=== PATIENT | female | born 1940 | race Caucasian/White ===

== ENCOUNTER → 2017-12-14 | Outpatient (CLI) | payer MEDICARE, BC ==
[~2017-12-14] MED LIST: ALBU90OI6 INH; AZIT250 PO; CEFU500 PO; CEFU50SU PO; CREON DR 24,001 EACH PO; DULO60 PO; LEVFLO500 PO; LISI20 PO; MIRT15 PO; Macrobid 100 M100 MG PO; Omeprazole20 M1 PO; PAIN MED PO; PRED10 PO; Prednisone20 MG PO; TIOT18 INH; [UNRECOGNIZED DRUG - REMARK]
[2017-12-14 12:13] LABS: BASOPHILS ABSOLUTE AUTO 0.02 K/mm3 (0.00-0.23); BASOPHILS PERCENT AUTO 0 % (0-2); EOSINOPHILS ABSOLUTE AUTO 0.02 K/mm3 (0.00-0.68); EOSINOPHILS PERCENT AUTO 0 % (0-6); Hematocrit 40.8 % (33.0-51.0); Hemoglobin 13.3 g/dL (11.5-16.0); IMMATURE GRAN ABSOLUTE AUTO 0.19 K/mm3 (0.00-0.10); IMMATURE GRAN PERCENT AUTO 1 % (0-1); LYMPHOCYTES ABSOLUTE AUTO 0.91 K/mm3 (0.84-5.20); LYMPHOCYTES PERCENT AUTO 4 % (21-46); MONOCYTES PERCENT AUTO 7 % (4-13); Mean Corpuscular HGB 30.2 pg (26.0-34.0); Mean Corpuscular HGB Conc 32.6 g/dL (31.5-36.5); Mean Corpuscular Volume 93 fL (80-100); Mean Platelet Volume 12.3 fL (9.1-12.4); NEUTROPHILS ABSOLUTE AUTO 20.56 K/mm3 (1.96-9.15); NEUTROPHILS PERCENT AUTO 88 % (41-73); Platelet Count 252 K/mm3 (150-400); RDW Coefficient Variation 13.9 % (11.7-14.2); RDW Standard Deviation 47.5 fL (35.1-46.3)
[2017-12-14 12:24] LABS: Albumin, Blood 3.6 g/dL (3.4-5.0); Bilirubin, Total 1.1 mg/dL (0.1-1.0); Bun/Creatinine Ratio 18.4 (12.0-20.0); Creatinine, Blood 1.25 mg/dL (0.40-1.00); Globulin, Blood 3.7 g/dL (2.2-4.0); Potassium, Blood 3.9 mmol/L (3.5-5.5); Total Protein, Blood 7.3 g/dL (6.4-8.2)
[2017-12-14 13:51] LABS: BAND PERCENT MAN 1 % (0-8); BASOPHILS PERCENT MAN 0 % (0-2); EOSINOPHILS PERCENT MAN 0 % (0-6); LYMPHOCYTES ABSOLUTE MAN 0.46 K/mm3 (0.84-5.20); LYMPHOCYTES PERCENT MAN 2 % (21-46); MONOCYTES ABSOLUTE MAN 1.39 K/mm3 (0.16-1.47); MONOCYTES PERCENT MAN 6 % (4-13); NEUTROPHILS ABSOLUTE MAN 21.43 K/mm3 (1.96-9.15); SEG NEUTROPHILS PERCENT MAN 91 % (41-73); TOTAL CELLS COUNTED 100
== END | disposition home or self-care (01) ==
LOC: LAB SHORT 12:00 → LAB EV 12:00
PROVIDERS: Physician Assistant Surgical
DX: R50.9 Fever, unspecified (principal); R52 Pain, unspecified
CPT/HCPCS: 80053; 85025

== ENCOUNTER → 2017-12-15 | Outpatient (CLI) | payer MEDICARE, BC ==
[2017-12-15 13:24] LABS: BASOPHILS ABSOLUTE AUTO 0.04 K/mm3 (0.00-0.23); BASOPHILS PERCENT AUTO 0 % (0-2); EOSINOPHILS ABSOLUTE AUTO 0.12 K/mm3 (0.00-0.68); EOSINOPHILS PERCENT AUTO 1 % (0-6); Hematocrit 38.5 % (33.0-51.0); Hemoglobin 12.2 g/dL (11.5-16.0); IMMATURE GRAN ABSOLUTE AUTO 0.12 K/mm3 (0.00-0.10); IMMATURE GRAN PERCENT AUTO 1 % (0-1); LYMPHOCYTES ABSOLUTE AUTO 0.58 K/mm3 (0.84-5.20); LYMPHOCYTES PERCENT AUTO 3 % (21-46); MONOCYTES PERCENT AUTO 6 % (4-13); Mean Corpuscular HGB 29.9 pg (26.0-34.0); Mean Corpuscular HGB Conc 31.7 g/dL (31.5-36.5); Mean Corpuscular Volume 94 fL (80-100); Mean Platelet Volume 12.3 fL (9.1-12.4); NEUTROPHILS ABSOLUTE AUTO 17.09 K/mm3 (1.96-9.15); NEUTROPHILS PERCENT AUTO 89 % (41-73); Platelet Count 290 K/mm3 (150-400); RDW Coefficient Variation 14.1 % (11.7-14.2); RDW Standard Deviation 48.6 fL (35.1-46.3); Red Blood Cell Count 4.08 M/mm3 (3.80-5.20); White Blood Cell Count 19.15 K/mm3 (4.00-11.30)
[2017-12-15 13:40] LABS: Albumin, Blood 3.5 g/dL (3.4-5.0); Albumin/Globulin Ratio 0.9 (0.8-1.8); Bilirubin, Total 0.7 mg/dL (0.1-1.0); Bun/Creatinine Ratio 17.8 (12.0-20.0); Calcium, Blood 9.1 mg/dL (8.5-10.1); Creatinine, Blood 1.07 mg/dL (0.40-1.00); Globulin, Blood 3.7 g/dL (2.2-4.0); Total Protein, Blood 7.2 g/dL (6.4-8.2)
== END | disposition home or self-care (01) ==
LOC: LAB SHORT 13:14 → LAB EV 13:14
PROVIDERS: Physician Assistant Medical
DX: R50.9 Fever, unspecified (principal)
CPT/HCPCS: 80053; 85025; 85379

== ENCOUNTER → 2018-06-13 | Outpatient (CLI) | payer MEDICARE, BC ==
[2018-06-13 11:06] LABS: BASOPHILS ABSOLUTE AUTO 0.03 K/mm3 (0.00-0.23); BASOPHILS PERCENT AUTO 0 % (0-2); EOSINOPHILS ABSOLUTE AUTO 0.25 K/mm3 (0.00-0.68); EOSINOPHILS PERCENT AUTO 3 % (0-6); Hematocrit 39.5 % (33.0-51.0); Hemoglobin 12.5 g/dL (11.5-16.0); IMMATURE GRAN ABSOLUTE AUTO 0.03 K/mm3 (0.00-0.10); IMMATURE GRAN PERCENT AUTO 0 % (0-1); LYMPHOCYTES ABSOLUTE AUTO 1.52 K/mm3 (0.84-5.20); LYMPHOCYTES PERCENT AUTO 17 % (21-46); MONOCYTES ABSOLUTE AUTO 0.63 K/mm3 (0.16-1.47); MONOCYTES PERCENT AUTO 7 % (4-13); Mean Corpuscular HGB 29.6 pg (26.0-34.0); Mean Corpuscular HGB Conc 31.6 g/dL (31.5-36.5); Mean Corpuscular Volume 93 fL (80-100); Mean Platelet Volume 11.9 fL (9.1-12.4); NEUTROPHILS ABSOLUTE AUTO 6.54 K/mm3 (1.96-9.15); NEUTROPHILS PERCENT AUTO 73 % (41-73); Platelet Count 249 K/mm3 (150-400); RDW Coefficient Variation 14.3 % (11.7-14.2); RDW Standard Deviation 48.5 fL (35.1-46.3); Red Blood Cell Count 4.23 M/mm3 (3.80-5.20)
[2018-06-13 11:25] LABS: Albumin, Blood 3.6 g/dL (3.4-5.0); Albumin/Globulin Ratio 0.9 (0.8-1.8); Bilirubin, Total 0.4 mg/dL (0.1-1.0); Bun/Creatinine Ratio 11.1 (12.0-20.0); Calcium, Blood 8.3 mg/dL (8.5-10.1); Creatinine, Blood 1.17 mg/dL (0.40-1.00); Potassium, Blood 3.7 mmol/L (3.5-5.5); Total Protein, Blood 7.6 g/dL (6.4-8.2)
[2018-06-16 17:07] LABS: TANDEM-R OSTASE 70.8 ug/L (.)
== END | disposition home or self-care (01) ==
LOC: LAB SHORT 10:53 → LAB EV 10:53
PROVIDERS: Physician Assistant
DX: I10 Essential (primary) hypertension (principal); R74.8 Abnormal levels of other serum enzymes
CPT/HCPCS: 80053; 84080; 85025

== ENCOUNTER → 2018-12-09 | Outpatient (CLI) | payer MEDICARE, BC ==
[~2018-12-09] MED LIST changes: +AMLO10 PO; +HYDR1TAB94 PO; +Prinivil5 MG PO
== END | disposition home or self-care (01) ==
LOC: LAB EV 09:56 → LAB SHORT 09:56
DX: R30.0 Dysuria (principal)
CPT/HCPCS: 87086

== ENCOUNTER → 2018-12-14 | Outpatient (CLI) | payer MEDICARE, BC ==
[2018-12-14 15:34] LABS: Hematocrit 40.1 % (33.0-51.0); Hemoglobin 12.5 g/dL (11.5-16.0); Mean Corpuscular HGB 29.8 pg (26.0-34.0); Mean Corpuscular HGB Conc 31.2 g/dL (31.5-36.5); Mean Corpuscular Volume 96 fL (80-100); Platelet Count 341 K/mm3 (150-400); RDW Coefficient Variation 14.6 % (11.7-14.2); RDW Standard Deviation 51.4 fL (35.1-46.3); Red Blood Cell Count 4.19 M/mm3 (3.80-5.20)
[2018-12-14 15:46] LABS: Albumin, Blood 3.7 g/dL (3.4-5.0); Bilirubin, Total 0.3 mg/dL (0.1-1.0); Bun/Creatinine Ratio 10.5 (12.0-20.0); Calcium, Blood 8.4 mg/dL (8.5-10.1); Creatinine, Blood 2.09 mg/dL (0.40-1.00); Globulin, Blood 3.8 g/dL (2.2-4.0); Potassium, Blood 4.5 mmol/L (3.5-5.5); Total Protein, Blood 7.5 g/dL (6.4-8.2)
[2018-12-14 15:52] LABS: Mean Platelet Volume 13.2 fL (9.1-12.4); White Blood Cell Count 11.63 K/mm3 (4.00-11.30)
[2018-12-14 16:05] LABS: BAND PERCENT MAN 3 % (0-8); BASOPHILS ABSOLUTE MAN 0.11 K/mm3 (0.00-0.23); BASOPHILS PERCENT MAN 1 % (0-2); EOSINOPHILS PERCENT MAN 0 % (0-6); LYMPHOCYTES % ATYPICAL MANUAL 3 % (0-0); LYMPHOCYTES ABSOLUTE MAN 3.37 K/mm3 (0.84-5.20); LYMPHOCYTES PERCENT MAN 26 % (21-46); MONOCYTES ABSOLUTE MAN 0.93 K/mm3 (0.16-1.47); MONOCYTES PERCENT MAN 8 % (4-13); NEUTROPHILS ABSOLUTE MAN 7.21 K/mm3 (1.96-9.15); SEG NEUTROPHILS PERCENT MAN 59 % (41-73); TOTAL CELLS COUNTED 100
== END | disposition home or self-care (01) ==
LOC: LAB SHORT 15:28 → LAB EV 15:28
PROVIDERS: Physician Assistant Medical
DX: N39.0 Urinary tract infection, site not specified (principal); R10.10 Upper abdominal pain, unspecified
CPT/HCPCS: 80053; 83690; 85025; 87086

== ENCOUNTER 2019-02-01 16:34 | Inpatient (IN) | payer MEDICARE, BC ==
[~2019-02-01] VITALS: Ht 157.5 cm; Wt 50.4 kg
[~2019-02-01 16:34] MED LIST changes: -AMLO10 PO; -CREON DR 24,001 EACH PO; -HYDR1TAB94 PO; -Prinivil5 MG PO; -TIOT18 INH
[2019-02-01] MEDS ORDERED: AMLO10 PO (16:40)
[2019-02-01] MEDS ORDERED: Prinivil5 MG PO (16:40)
[2019-02-01] MEDS ORDERED: DULO60 PO (17:30)
[2019-02-01] MEDS ORDERED: CREON DR 24,001 EACH PO (18:00)
[2019-02-01] MEDS ORDERED: TIOT18 INH (18:00)
[2019-02-01 18:09] LABS: BASOPHILS ABSOLUTE AUTO 0.02 K/mm3 (0.00-0.23); BASOPHILS PERCENT AUTO 0 % (0-2); EOSINOPHILS ABSOLUTE AUTO 0.02 K/mm3 (0.00-0.68); EOSINOPHILS PERCENT AUTO 0 % (0-6); Hematocrit 37.7 % (33.0-51.0); Hemoglobin 11.3 g/dL (11.5-16.0); IMMATURE GRAN ABSOLUTE AUTO 0.06 K/mm3 (0.00-0.10); IMMATURE GRAN PERCENT AUTO 0 % (0-1); LYMPHOCYTES ABSOLUTE AUTO 1.07 K/mm3 (0.84-5.20); LYMPHOCYTES PERCENT AUTO 8 % (21-46); MONOCYTES ABSOLUTE AUTO 0.87 K/mm3 (0.16-1.47); MONOCYTES PERCENT AUTO 6 % (4-13); Mean Corpuscular HGB 29.7 pg (26.0-34.0); Mean Platelet Volume 12.7 fL (9.1-12.4); NEUTROPHILS ABSOLUTE AUTO 12.11 K/mm3 (1.96-9.15); NEUTROPHILS PERCENT AUTO 86 % (41-73); Platelet Count 210 K/mm3 (150-400); RDW Coefficient Variation 14.6 % (11.7-14.2); RDW Standard Deviation 52.8 fL (35.1-46.3); Red Blood Cell Count 3.81 M/mm3 (3.80-5.20); White Blood Cell Count 14.15 K/mm3 (4.00-11.30)
[2019-02-01 18:10] LABS: Mean Corpuscular Volume 99 fL (80-100)
[2019-02-01 18:26] LABS: Albumin, Blood 3.4 g/dL (3.4-5.0); Bilirubin, Total 0.3 mg/dL (0.1-1.0); Calcium, Blood 8.6 mg/dL (8.5-10.1); Creatinine, Blood 1.06 mg/dL (0.40-1.00); Globulin, Blood 3.3 g/dL (2.2-4.0); Potassium, Blood 4.6 mmol/L (3.5-5.5); Total Protein, Blood 6.7 g/dL (6.4-8.2)
[2019-02-02 06:18] LABS: BASOPHILS ABSOLUTE AUTO 0.02 K/mm3 (0.00-0.23); BASOPHILS PERCENT AUTO 0 % (0-2); EOSINOPHILS ABSOLUTE AUTO 0.09 K/mm3 (0.00-0.68); EOSINOPHILS PERCENT AUTO 1 % (0-6); Hematocrit 36.2 % (33.0-51.0); Hemoglobin 10.9 g/dL (11.5-16.0); IMMATURE GRAN ABSOLUTE AUTO 0.05 K/mm3 (0.00-0.10); IMMATURE GRAN PERCENT AUTO 1 % (0-1); LYMPHOCYTES ABSOLUTE AUTO 1.62 K/mm3 (0.84-5.20); LYMPHOCYTES PERCENT AUTO 15 % (21-46); MONOCYTES PERCENT AUTO 6 % (4-13); Mean Corpuscular HGB 29.3 pg (26.0-34.0); Mean Corpuscular HGB Conc 30.1 g/dL (31.5-36.5); Mean Corpuscular Volume 97 fL (80-100); NEUTROPHILS ABSOLUTE AUTO 8.38 K/mm3 (1.96-9.15); NEUTROPHILS PERCENT AUTO 77 % (41-73); Platelet Count 202 K/mm3 (150-400); RDW Coefficient Variation 14.5 % (11.7-14.2); RDW Standard Deviation 52.1 fL (35.1-46.3); Red Blood Cell Count 3.72 M/mm3 (3.80-5.20); White Blood Cell Count 10.86 K/mm3 (4.00-11.30)
[2019-02-02 06:22] LABS: Mean Platelet Volume 13.5 fL (9.1-12.4)
[2019-02-02 06:35] LABS: Albumin, Blood 3.1 g/dL (3.4-5.0); Bilirubin, Total 0.4 mg/dL (0.1-1.0); Bun/Creatinine Ratio 15.5 (12.0-20.0); Calcium, Blood 8.3 mg/dL (8.5-10.1); Creatinine, Blood 1.16 mg/dL (0.40-1.00); Globulin, Blood 3.2 g/dL (2.2-4.0); Magnesium, Blood 1.9 mg/dL (1.6-2.4); Potassium, Blood 4.5 mmol/L (3.5-5.5); Total Protein, Blood 6.3 g/dL (6.4-8.2)
--- NOTE | 2019-02-02 07:22 | NUR ---
SUMMARY PT ADMITTED LAST NIGHT FROM ER S/P LUNG BX WITH INCIDENTAL PUNCTURE WITH DEVELOPMENT OF PNEMO REQUIRING PIGTAIL CHEST TUBE TO R ANTERIOR CHES. PT DENIES SOB.SATS MOSTLY MID 90.S HOWEVER RT NOTED X 1 JUST UNDER 89 RT INCREASED O2 TO 3.5 L. WILL CONT TO MONITOR PT WITH HX COPD.UNKNOW IF RETAINER.I CALLED {PEDRO} ON ARRIVAL AND ADVISED OF BUBBLING SOUND CONTINUOUS PER PIGTAIL DRAIN WELL PT WITH CREPITUS ENTIRE R BREAST AREAS. PT DOES HAVE EQUAL RISE AND FALL BILAT.ALSO ADVISED PEDRO L LUNG GALLAGHER DECREASED WITH CRACKLES TO BASE AND R LUNG FIELD WITH CRACKLES THROUGH OUT. ? WHETHER TO GIVE LOVENOX ORDER.PEDRO ROUNDED TO ROOM TO ASSESS PT. NO CHANGE OF ORDERS.PT MEDICATED PO FOR PAIN THIS AM AND OUT TO RADIOLOGY FOR CXR. CONT TO DENY SOB. REPORTS BREATHING FEELING EASIER.
--- NOTE | 2019-02-02 15:29 | NUR ---
PT VISITING WITH FRIENDS AT BEDSIDE T/O AFTERNOON.
--- NOTE | 2019-02-02 18:35 | NUR ---
SHIFT SUMMARY PT A&OX4 WITH VSS T/O SHIFT TODAY. SPO2 ABOVE 90% ON 3L NS. DENIED SOB OR DYSPNEA. CHEST TUBE IN PLACE AND HOOKED UP TO SUCTION. NOT BLEEDING AT INSERTION SITE OR DRAINAGE IN CONTAINER. DR NOTIFIED AND IN TO SEE PT R/T CREPITIS ON RIGHT LATERAL CHEST AREA THIS AFTERNOON, NO NEW ORDERS OBTAINED. USING BSC WITH 1 ASSIST. VOIDING WELL AND TOLERATING REG DIET. CALL LIGHT WITHIN REACH AND PT IS ABLE TO USE APPROPRIATELY.
--- NOTE | 2019-02-03 06:18 | NUR ---
SUMMARY PT REMAINS A7O X4. VSS, O2 INCREAED TO 4.5 L VIA RT CARE. VSS. CREPITUS REMAINS, LUNGS ARE DIMINISHED IN ALL FEILDS. PT DENIES SOB. CHEST TUBE INTACT, DRSG CLEAN/DRY, HOOKED TO WALL SUCTION. SCANT AMOUNT OF SEROUS FLUID NOTED IN TUBING. 1 ASSIST TO BSC. OXYCODONE GIVEN FOR PAIN. WCTM, CALL LIGHT IN REACH
--- NOTE | 2019-02-03 17:04 | NUR ---
SHIFT SUMMARY PT HAS BEEN UP AND WALKED THE HALLWAY SEVERAL TIMES TODAY WITH FAMILY. PT TOLERATING PO FLUIDS AND SM AMTS OF FOOD. PAIN HAS BEEN MANAGED WITH PO PAIN MED PER ORDERS. PT DID HAVE SM AMT OF VOMITING TODAY AND WAS MED WITH ZOFRAN PER ORDER. PT HAD SHOWER TODAY. ANN IN PLACE, OFF FLOOR, DRAINING. FAMILY HAS BEEN AT BEDSIDE THROUGHOUT THE DAY. ASSISTED WITH ADL'S PRN.
--- NOTE | 2019-02-03 17:28 | NUR ---
SHIFT SUMMARY PT HAS BEEN UP TO COMMODE TODAY AND SITTING ON EDGE OF BED. REPOSITIONS SELF WITH MINIMAL HELP. DR GALAVIZ WAS IN TO SEE PT TODAY WELL FROM [place]. PAIN MANAGED WITH PO PAIN MED PER ORDERS. REPORTED NO SOB OR CP, ALTHOUGH PT HAS NEEDED 02 TODAY. NO NAUSEA TODAY. TOLERATING FOOD AND PO FLUIDS.
--- NOTE | 2019-02-04 06:03 | NUR ---
PATIENT WOKE SLIGHTLY DISORIENTED SEVERAL TIMES THIS SHIFT. SHE EASILY REORIENTED AFTER SEEING RN AND TALKING. NO INCREASE IN CREPITUS, NO SOB, NO DYSPNEA. lUNG GALLAGHER ARE CLEAR. [place] IS SECURE TO RT CHEST WALL. PATIENT HAS BEEN UP TO BR WITH ONE PERSON ASSIST. NO ACUTE ISSUES THROUGH OUT SHIFT.
[2019-02-04] MEDS ORDERED: HYDR1TAB94 PO (13:05)
--- NOTE | 2019-02-04 14:36 | NUR ---
DISCHARGE D/C INSTRUCTIONS GIVEN TO PT BY RN, PRINTED INSTRUCTIONS SENT HOME WITH PT. REPORTS UNDERSTANDING AND NO QUESTIONS. PT TOLERATING FOOD AND FLUIDS AND VOIDING. BELONGINGS AND HARD RX SCRIPT SENT WITH PT. PT ESCORTED TO VEHICLE WITH RN, AMBULATED IND TO CAR. PT LEFT WITH FAMILY. IV DC'D. NO OTHER IVS IN PLACE.
== END 2019-02-04 14:29 | disposition home or self-care (01) | DRG 201 ==
LOC: ER 16:34 → SURS 16:35 → MEDS 16:35 → SURS 21:01
PROVIDERS: Emergency Medicine; ADMIT Internal Medicine
PROC: 0W9930Z Drainage of Right Pleural Cavity with Drainage Device, Percutaneous Approach (ICD-10-PCS; principal; 2019-02-03)
DX: J95.811 Postprocedural pneumothorax (principal); J44.9 Chronic obstructive pulmonary disease, unspecified; R91.8 Other nonspecific abnormal finding of lung field; K21.9 Gastro-esophageal reflux disease without esophagitis; I12.9 Hypertensive chronic kidney disease with stage 1 through stage 4 chronic kidney disease, or unspecified chronic kidney disease; N18.9 Chronic kidney disease, unspecified; Z87.891 Personal history of nicotine dependence; Z85.07 Personal history of malignant neoplasm of pancreas; E78.5 Hyperlipidemia, unspecified
CPT/HCPCS: 32405; 36415; 71045; 71046; 77012; 80053; 83735; 85025; 88305; 88341; 88342; 93005; 93010; 94640; 94760; 94762; 96372; 96374; 96375; 96376; 99284-25; G0378; J1170; J1650; J2405

== ENCOUNTER 2019-03-24 15:12 | Inpatient (IN) | payer MEDICARE, BC ==
[~2019-03-24] VITALS: Ht 157.5 cm; Wt 47.3 kg
[~2019-03-24 15:12] MED LIST changes: -ALBU90OI6 INH; +CREON DR 24,001 EACH PO; +HYDR1TAB94 PO; -MIRT15 PO; +ONDA4ODT MM; -Omeprazole20 M1 PO; +TIOT18 INH
[2019-03-24 16:05] LABS: BASOPHILS ABSOLUTE AUTO 0.02 K/mm3 (0.00-0.23); BASOPHILS PERCENT AUTO 0 % (0-2); EOSINOPHILS ABSOLUTE AUTO 0.03 K/mm3 (0.00-0.68); EOSINOPHILS PERCENT AUTO 0 % (0-6); Hematocrit 38.4 % (33.0-51.0); Hemoglobin 11.7 g/dL (11.5-16.0); IMMATURE GRAN ABSOLUTE AUTO 0.04 K/mm3 (0.00-0.10); IMMATURE GRAN PERCENT AUTO 0 % (0-1); LYMPHOCYTES ABSOLUTE AUTO 1.37 K/mm3 (0.84-5.20); LYMPHOCYTES PERCENT AUTO 13 % (21-46); MONOCYTES ABSOLUTE AUTO 0.78 K/mm3 (0.16-1.47); MONOCYTES PERCENT AUTO 7 % (4-13); Mean Corpuscular HGB 29.8 pg (26.0-34.0); Mean Corpuscular HGB Conc 30.5 g/dL (31.5-36.5); Mean Corpuscular Volume 98 fL (80-100); Mean Platelet Volume 12.9 fL (9.1-12.4); NEUTROPHILS ABSOLUTE AUTO 8.63 K/mm3 (1.96-9.15); NEUTROPHILS PERCENT AUTO 79 % (41-73); Platelet Count 172 K/mm3 (150-400); RDW Coefficient Variation 14.2 % (11.7-14.2); RDW Standard Deviation 51.1 fL (35.1-46.3); Red Blood Cell Count 3.92 M/mm3 (3.80-5.20); White Blood Cell Count 10.87 K/mm3 (4.00-11.30)
[2019-03-24 16:22] LABS: Albumin/Globulin Ratio 0.8 (0.8-1.8); Bilirubin, Total 0.4 mg/dL (0.1-1.0); Bun/Creatinine Ratio 17.2 (12.0-20.0); Calcium, Blood 7.9 mg/dL (8.5-10.1); Creatinine, Blood 0.99 mg/dL (0.40-1.00); Globulin, Blood 3.9 g/dL (2.2-4.0); Potassium, Blood 3.5 mmol/L (3.5-5.5); Total Protein, Blood 6.9 g/dL (6.4-8.2)
[2019-03-24] MEDS ORDERED: ALBU90OI6 INH ×2 (16:26)
[2019-03-24] MEDS ORDERED: Omeprazole20 M1 PO ×2 (16:26)
[2019-03-24] MEDS ORDERED: MIRT15 PO ×2 (16:26)
[2019-03-24] MEDS ORDERED: AMLO10 PO ×2 (16:27)
[2019-03-24] MEDS ORDERED: DULO60 PO ×2 (16:27)
[2019-03-24] MEDS ORDERED: PRINIVIL5 MG PO ×2 (16:27)
[2019-03-24] MEDS ORDERED: CREON DR 24,001 EACH PO ×2 (17:16)
--- NOTE | 2019-03-24 18:45 | NUR ---
SHIFT SUMMARY PATIENT NAUSEATED AT THIS TIME, MEDICATED PER EMAR. 1 PERSON ASSIST TO THE BATHROOM. IV ANTIBIOTICS GIVEN PER EMAR. ABLE TO MAKE HER NEEDS KNOWN.
--- NOTE | 2019-03-25 01:04 | NUR ---
CORRECTIONS COUNSELOR INFORMED OF SHORT RUM OF SVT. PT ASSESSED AND NO ISSUES NOTED. STRIP OF EVENT BEING PLACED IN CHART.
--- NOTE | 2019-03-25 03:46 | NUR ---
SHIFT SUMMARY PT HAS BEEN RESTING WELL T/O SHIFT. PT HAD NOTED SHORT RUN OF SVT W/O ISSUE NOTED BY PT. PT HAD SPO2 AT 88% EARLY IN SHIFT. PT PLACED ON 2LPM O2 VIA NC. PT DENIED ANY SOB. PT HAD SOME CX DISCOMFORT WITH INHALATION THAT RESOLVED WITH BREATHING TX VIA RT. PT CURRENTLY SLEEPING AND BREATHING EASY. CALL LIGHT IN REACH.
[2019-03-25 05:31] LABS: BASOPHILS ABSOLUTE AUTO 0.01 K/mm3 (0.00-0.23); BASOPHILS PERCENT AUTO 0 % (0-2); EOSINOPHILS ABSOLUTE AUTO 0.07 K/mm3 (0.00-0.68); EOSINOPHILS PERCENT AUTO 1 % (0-6); Hematocrit 34.8 % (33.0-51.0); Hemoglobin 10.4 g/dL (11.5-16.0); IMMATURE GRAN ABSOLUTE AUTO 0.02 K/mm3 (0.00-0.10); IMMATURE GRAN PERCENT AUTO 0 % (0-1); LYMPHOCYTES ABSOLUTE AUTO 1.62 K/mm3 (0.84-5.20); LYMPHOCYTES PERCENT AUTO 26 % (21-46); MONOCYTES ABSOLUTE AUTO 0.46 K/mm3 (0.16-1.47); MONOCYTES PERCENT AUTO 7 % (4-13); Mean Corpuscular HGB Conc 29.9 g/dL (31.5-36.5); Mean Corpuscular Volume 97 fL (80-100); NEUTROPHILS ABSOLUTE AUTO 4.02 K/mm3 (1.96-9.15); NEUTROPHILS PERCENT AUTO 65 % (41-73); Platelet Count 124 K/mm3 (150-400); RDW Coefficient Variation 14.3 % (11.7-14.2); RDW Standard Deviation 50.5 fL (35.1-46.3); Red Blood Cell Count 3.59 M/mm3 (3.80-5.20)
[2019-03-25 05:39] LABS: Mean Platelet Volume 13.4 fL (9.1-12.4)
[2019-03-25 05:50] LABS: Bun/Creatinine Ratio 13.2 (12.0-20.0); Calcium, Blood 7.8 mg/dL (8.5-10.1); Creatinine, Blood 0.99 mg/dL (0.40-1.00); Magnesium, Blood 1.8 mg/dL (1.6-2.4); Potassium, Blood 3.5 mmol/L (3.5-5.5)
[2019-03-25 05:52] LABS: Source, Urine Clean Catch
[2019-03-25 05:55] LABS: Bilirubin, Urine Neg (Neg); Blood, Urine Neg (Neg); Glucose Qualitative, Urine Neg (Neg); Ketones, Urine Neg (Neg); Leukocyte Esterase, Urine 1+ (Neg); Nitrite, Urine Neg (Neg); Protein, Urine Neg (Neg); Urobilinogen, Urine NORM (Normal)
[2019-03-25 05:59] LABS: Appearance, Urine Clear (Clear); Color, Urine Yellow (P-Yellow)
[2019-03-25 06:01] LABS: Bacteria Rare /hpf; Red Blood Cells, Urine Not Seen /hpf (0-2); Squamous Epithelial Cells Rare /hpf (Few)
[2019-03-25] MEDS ORDERED: ONDA4ODT SL ×2 (09:49)
--- NOTE | 2019-03-25 14:28 | NUR ---
Echocardiogram completed.
--- NOTE | 2019-03-25 18:30 | NUR ---
PATIENT A/O X 4. PROVIDER MET WITH PATIENT TODAY. ANTIBIOTICS INFUSED WITHOUT ASE OBSERVED. PATIENT APPETITE SEEMS TO HAVE IMPROVED THROUGHOUT DAY AND THIS IS A MAJOR CONCERN FOR PROVIDER AND PATIENT. ECHOCARDIOGRAM COMPLETED. RESPIRATORY PANEL COMPLETED TODAY (AWAITING RESULTS). PATIENT REQUIRED O2 NC DURING SHIFT D/T DESAT TO 86%.
[2019-03-25 19:24] LABS: Adenovirus Not Detected (NOT DETECT); Bordetella pertussis Not Detected (NOT DETECT); Chlamydophila pneumoniae Not Detected (NOT DETECT); Coronavirus 229E Not Detected (NOT DETECT); Coronavirus HKU1 Not Detected (NOT DETECT); Coronavirus NL63 Not Detected (NOT DETECT); Coronavirus OC43 Not Detected (NOT DETECT); Human Metapneumovirus Not Detected (NOT DETECT); Human Rhinovirus/Enterovirus Not Detected (NOT DETECT); Influenza A Not Detected (NOT DETECT); Influenza A/2009-H1 Not Detected (NOT DETECT); Influenza A/H1 Not Detected (NOT DETECT); Influenza A/H3 Not Detected (NOT DETECT); Influenza B Not Detected (NOT DETECT); Mycoplasma pneumoniae Not Detected (NOT DETECT); Parainfluenza Virus 1 Detected (NOT DETECT); Parainfluenza Virus 2 Not Detected (NOT DETECT); Parainfluenza Virus 3 Not Detected (NOT DETECT); Parainfluenza Virus 4 Not Detected (NOT DETECT); Respiratory Syncytial Virus Not Detected (NOT DETECT)
--- NOTE | 2019-03-26 17:34 | NUR ---
SHIFT SUMMARY PATIENT A/O X 4. TELEMETRY DC'D DURING SHIFT. PATIENT HAS BEEN ON ROOM AIR FOR LARGEST PORTION OF SHIFT. PT/OT EVAL COMPLETED TODAY. POWER GLIDE PLACED ON PATIENT ANTONINO FOR IV ABX INFUSIONS OUTPATIENT. VSS FOR SHIFT.
--- NOTE | 2019-03-27 04:52 | NUR ---
MACHINE CONTAINER WASHER SUMMARY PT A/O X4. PLEASANT AND COOPERATIVE. INDEPENDENT IN ROOM. PT STATED SHE "HAVEN'T SLEPT ALL NIGHT". WHEN STAFF CHECKED THROUGHOUT THE NIGHT, SHE APPEARED TO BE SLEEPING DURING THE NIGHT. POWERGLIDE ON RIGHT UPPER ARM PATENT AND FLUSHES EASILY, PT DENIED PAIN, NAUSEA, DIZZINIESS. NO ACUTE CHANGES. VSS. PLAN TO BE DISCHARGED TODAY THROUGH FRIDAY TO HOME PER AM NURSE FROM PREVIOUS SHIFT.
[2019-03-27 04:54] LABS: BASOPHILS PERCENT AUTO 0 % (0-2); EOSINOPHILS PERCENT AUTO 0 % (0-6); Hematocrit 33.8 % (33.0-51.0); Hemoglobin 10.3 g/dL (11.5-16.0); IMMATURE GRAN ABSOLUTE AUTO 0.04 K/mm3 (0.00-0.10); IMMATURE GRAN PERCENT AUTO 0 % (0-1); LYMPHOCYTES ABSOLUTE AUTO 0.51 K/mm3 (0.84-5.20); LYMPHOCYTES PERCENT AUTO 5 % (21-46); MONOCYTES ABSOLUTE AUTO 0.17 K/mm3 (0.16-1.47); MONOCYTES PERCENT AUTO 2 % (4-13); Mean Corpuscular HGB 29.7 pg (26.0-34.0); Mean Corpuscular HGB Conc 30.5 g/dL (31.5-36.5); Mean Corpuscular Volume 97 fL (80-100); Mean Platelet Volume 12.4 fL (9.1-12.4); NEUTROPHILS ABSOLUTE AUTO 8.71 K/mm3 (1.96-9.15); NEUTROPHILS PERCENT AUTO 92 % (41-73); Platelet Count 150 K/mm3 (150-400); RDW Coefficient Variation 13.9 % (11.7-14.2); RDW Standard Deviation 50.4 fL (35.1-46.3); Red Blood Cell Count 3.47 M/mm3 (3.80-5.20); White Blood Cell Count 9.43 K/mm3 (4.00-11.30)
[2019-03-27 05:56] LABS: Alanine Aminotransfer (ALT/SGP 26 U/L (12-78); Albumin, Blood 2.6 g/dL (3.4-5.0); Albumin/Globulin Ratio 0.7 (0.8-1.8); Alk Phos 278 U/L (50-136); Anion Gap 5 mmol/L (6-16); Aspartate Aminotrans (AST/SGOT 36 U/L (12-37); Bilirubin, Total 0.2 mg/dL (0.1-1.0); Blood Urea Nitrogen 19 mg/dL (8-24); CO2, Blood 27 mmol/L (21-32); Calcium, Blood 8.2 mg/dL (8.5-10.1); Chloride, Blood 111 mmol/L (98-108); Creatinine, Blood 0.86 mg/dL (0.40-1.00); Globulin, Blood 3.5 g/dL (2.2-4.0); Glomerular Filtration Rate >60 (60-); Glucose, Blood 150 mg/dL (70-99); Potassium, Blood 4.2 mmol/L (3.5-5.5); Sodium, Blood 143 mmol/L (136-145); Total Protein, Blood 6.1 g/dL (6.4-8.2)
--- NOTE | 2019-03-27 17:44 | NUR ---
PATIENT IS A/OX4, UP INDEPENDENTLY IN ROOM AND HALLS. VSS, ON RA. POWERGLIDE TO RUE IS SL BETWEEN ABX. LUNGS DIMINISHED THROUGHOUT. PLAN IS TO D/C BACK TO HOME WITH OUTPATIENT ABX TO TREAT BACTEREMIA. NO ACUTE CHANGES THIS SHIFT.
[2019-03-28] MEDS ORDERED: Ceftriaxon2 GM/50 ML IV ×2 (10:19)
[2019-03-28] MEDS ORDERED: ROBITUSSIN100 MG/5 M PO ×2 (10:23)
[2019-03-28] MEDS ORDERED: PRED10 PO ×2 (10:26)
[2019-03-28] MEDS ORDERED: ALBU2.5V5 INH ×2 (10:33)
--- NOTE | 2019-03-28 13:09 | NUR ---
PT DISCHARGED FROM UNIT AT 1240 VIA WHEELCHAIR. DISCHARGE INSTRUCTIONS REVIEWED. POWERGLIDE LEFT IN PLACE PER ORDERS FOR IV ANTIBIOTIC TRANSFUSION IN [facility]. APOINTMENT WITH [facility] SCHEDULED FOR 900 TOMORROW MORNING. MEDICATIONS FAXED TO [facility] IN [place].
== END 2019-03-28 12:40 | disposition home or self-care (01) | DRG 871 ==
LOC: ER 15:12 → MEDS 15:13 → ER 15:13 → MEDS 16:56 → ENPENDDIS 03-28 08:30 → MEDS 03-28 12:40
PROVIDERS: Internal Medicine Gastroenterology; Physician Assistant; ADMIT Internal Medicine
DX: R78.81 Bacteremia (principal); J96.21 Acute and chronic respiratory failure with hypoxia; J44.0 Chronic obstructive pulmonary disease with (acute) lower respiratory infection; J44.1 Chronic obstructive pulmonary disease with (acute) exacerbation; C34.11 Malignant neoplasm of upper lobe, right bronchus or lung; B95.4 Other streptococcus as the cause of diseases classified elsewhere; J06.9 Acute upper respiratory infection, unspecified; Z85.07 Personal history of malignant neoplasm of pancreas; E78.5 Hyperlipidemia, unspecified; K21.9 Gastro-esophageal reflux disease without esophagitis; Z87.891 Personal history of nicotine dependence; K86.89 Other specified diseases of pancreas
CPT/HCPCS: 0099U; 36415; 36600; 71046; 80048; 80053; 81001; 82803; 83605; 83735; 84145; 84484; 85025; 87040; 87086; 87804; 93005; 93010; 93306; 94640; 94667; 94760; 96365; 97161; 99284-25; 99285-25; A9270; J0456; J0696; J1650; J1956; J2405; J2930; J7050; J7512

== ENCOUNTER 2019-03-29 07:27 | Day surgery (SDC) | payer MEDICARE, BC ==
[~2019-03-29 07:27] MED LIST changes: +ALBU2.5V5 INH; +ALBU90OI6 INH; +AMLO10 PO; +Ceftriaxon2 GM/50 ML IV; +MIRT15 PO; +ONDA4ODT SL; +Omeprazole20 M1 PO; +PRINIVIL5 MG PO; +ROBITUSSIN100 MG/5 M PO
== END 2019-03-29 09:45 | disposition home or self-care (01) ==
LOC: ATC 07:27
DX: R78.81 Bacteremia (principal); B95.4 Other streptococcus as the cause of diseases classified elsewhere; I10 Essential (primary) hypertension; J44.9 Chronic obstructive pulmonary disease, unspecified; C80.1 Malignant (primary) neoplasm, unspecified; E78.5 Hyperlipidemia, unspecified; K21.9 Gastro-esophageal reflux disease without esophagitis; M19.90 Unspecified osteoarthritis, unspecified site; Z87.891 Personal history of nicotine dependence; Z85.07 Personal history of malignant neoplasm of pancreas; Z90.710 Acquired absence of both cervix and uterus; Z90.49 Acquired absence of other specified parts of digestive tract; Z88.5 Allergy status to narcotic agent; Z79.51 Long term (current) use of inhaled steroids; Z79.2 Long term (current) use of antibiotics; Z79.899 Other long term (current) drug therapy
CPT/HCPCS: 96365; J0696

== ENCOUNTER 2019-03-30 00:10 | Day surgery (SDC) | payer MEDICARE, BC | END 2019-03-30 23:03 | disposition home or self-care (01) | LOC: ATC 00:10 | DX: J20.2 Acute bronchitis due to streptococcus (principal); I10 Essential (primary) hypertension; J44.9 Chronic obstructive pulmonary disease, unspecified; E78.5 Hyperlipidemia, unspecified; K21.9 Gastro-esophageal reflux disease without esophagitis; Z88.5 Allergy status to narcotic agent; Z87.891 Personal history of nicotine dependence; Z79.899 Other long term (current) drug therapy | CPT/HCPCS: 96365; J0696 ==

== ENCOUNTER 2019-03-31 00:13 | Day surgery (SDC) | payer MEDICARE, BC | END 2019-03-31 10:08 | disposition home or self-care (01) | LOC: ATC 00:13 | DX: R78.81 Bacteremia (principal); B95.4 Other streptococcus as the cause of diseases classified elsewhere; C34.90 Malignant neoplasm of unspecified part of unspecified bronchus or lung; J44.9 Chronic obstructive pulmonary disease, unspecified; I10 Essential (primary) hypertension; E78.5 Hyperlipidemia, unspecified; K21.9 Gastro-esophageal reflux disease without esophagitis; M19.90 Unspecified osteoarthritis, unspecified site; Z79.2 Long term (current) use of antibiotics; Z79.51 Long term (current) use of inhaled steroids; Z79.52 Long term (current) use of systemic steroids; Z79.82 Long term (current) use of aspirin; Z79.899 Other long term (current) drug therapy; Z85.07 Personal history of malignant neoplasm of pancreas; Z90.710 Acquired absence of both cervix and uterus; Z90.49 Acquired absence of other specified parts of digestive tract; Z87.891 Personal history of nicotine dependence; Z88.5 Allergy status to narcotic agent | CPT/HCPCS: 96365; J0696 ==

== ENCOUNTER 2019-04-01 00:18 | Day surgery (SDC) | payer MEDICARE, BC | END 2019-04-01 10:20 | disposition home or self-care (01) | LOC: ATC 00:18 | DX: R78.81 Bacteremia (principal); B95.4 Other streptococcus as the cause of diseases classified elsewhere; C34.90 Malignant neoplasm of unspecified part of unspecified bronchus or lung; J44.9 Chronic obstructive pulmonary disease, unspecified; I10 Essential (primary) hypertension; E78.5 Hyperlipidemia, unspecified; K21.9 Gastro-esophageal reflux disease without esophagitis; M19.90 Unspecified osteoarthritis, unspecified site; Z79.2 Long term (current) use of antibiotics; Z79.51 Long term (current) use of inhaled steroids; Z79.899 Other long term (current) drug therapy; Z88.5 Allergy status to narcotic agent; Z85.07 Personal history of malignant neoplasm of pancreas; Z90.710 Acquired absence of both cervix and uterus; Z90.49 Acquired absence of other specified parts of digestive tract; Z87.891 Personal history of nicotine dependence | CPT/HCPCS: 96365; J0696 ==

== ENCOUNTER 2019-04-02 00:28 | Day surgery (SDC) | payer MEDICARE, BC | END 2019-04-02 10:01 | disposition home or self-care (01) | LOC: ATC 00:28 | DX: R78.81 Bacteremia (principal); B95.4 Other streptococcus as the cause of diseases classified elsewhere; C34.90 Malignant neoplasm of unspecified part of unspecified bronchus or lung; J44.9 Chronic obstructive pulmonary disease, unspecified; I10 Essential (primary) hypertension; E78.5 Hyperlipidemia, unspecified; M19.90 Unspecified osteoarthritis, unspecified site; K21.9 Gastro-esophageal reflux disease without esophagitis; Z85.07 Personal history of malignant neoplasm of pancreas; Z79.2 Long term (current) use of antibiotics; Z79.899 Other long term (current) drug therapy; Z87.891 Personal history of nicotine dependence; Z90.49 Acquired absence of other specified parts of digestive tract; Z88.5 Allergy status to narcotic agent | CPT/HCPCS: 96365; J0696 ==

== ENCOUNTER 2019-04-03 00:57 | Day surgery (SDC) | payer MEDICARE, BC | END 2019-04-03 10:17 | disposition home or self-care (01) | LOC: ATC 00:57 | DX: R78.81 Bacteremia (principal); B95.4 Other streptococcus as the cause of diseases classified elsewhere; C34.90 Malignant neoplasm of unspecified part of unspecified bronchus or lung; J44.9 Chronic obstructive pulmonary disease, unspecified; I10 Essential (primary) hypertension; E78.5 Hyperlipidemia, unspecified; M19.90 Unspecified osteoarthritis, unspecified site; K21.9 Gastro-esophageal reflux disease without esophagitis; Z85.07 Personal history of malignant neoplasm of pancreas; Z72.9 Problem related to lifestyle, unspecified; Z79.51 Long term (current) use of inhaled steroids; Z79.899 Other long term (current) drug therapy; Z87.891 Personal history of nicotine dependence; Z90.49 Acquired absence of other specified parts of digestive tract; Z88.5 Allergy status to narcotic agent | CPT/HCPCS: 96365; J0696 ==

== ENCOUNTER 2019-04-04 00:08 | Day surgery (SDC) | payer MEDICARE, BC | END 2019-04-04 10:10 | disposition home or self-care (01) | LOC: ATC 00:08 | DX: R78.81 Bacteremia (principal); B95.4 Other streptococcus as the cause of diseases classified elsewhere; C34.90 Malignant neoplasm of unspecified part of unspecified bronchus or lung; J44.9 Chronic obstructive pulmonary disease, unspecified; I10 Essential (primary) hypertension; E78.5 Hyperlipidemia, unspecified; K21.9 Gastro-esophageal reflux disease without esophagitis; M19.90 Unspecified osteoarthritis, unspecified site; Z79.2 Long term (current) use of antibiotics; Z79.51 Long term (current) use of inhaled steroids; Z79.52 Long term (current) use of systemic steroids; Z79.899 Other long term (current) drug therapy; Z90.710 Acquired absence of both cervix and uterus; Z90.49 Acquired absence of other specified parts of digestive tract; Z87.891 Personal history of nicotine dependence; Z85.07 Personal history of malignant neoplasm of pancreas; Z88.5 Allergy status to narcotic agent | CPT/HCPCS: 96365; J0696 ==

== ENCOUNTER 2019-04-05 15:37 | Day surgery (SDC) | payer MEDICARE, BC | END 2019-04-05 15:59 | disposition home or self-care (01) | LOC: ATC 15:37 | DX: R78.81 Bacteremia (principal); B95.4 Other streptococcus as the cause of diseases classified elsewhere; C34.90 Malignant neoplasm of unspecified part of unspecified bronchus or lung; J44.9 Chronic obstructive pulmonary disease, unspecified; I10 Essential (primary) hypertension; E78.5 Hyperlipidemia, unspecified; K21.9 Gastro-esophageal reflux disease without esophagitis; M19.90 Unspecified osteoarthritis, unspecified site; Z79.2 Long term (current) use of antibiotics; Z79.51 Long term (current) use of inhaled steroids; Z79.52 Long term (current) use of systemic steroids; Z79.899 Other long term (current) drug therapy; Z90.710 Acquired absence of both cervix and uterus; Z90.49 Acquired absence of other specified parts of digestive tract; Z87.891 Personal history of nicotine dependence; Z88.5 Allergy status to narcotic agent | CPT/HCPCS: 96365; J0696 ==

== ENCOUNTER 2019-04-06 00:28 | Day surgery (SDC) | payer MEDICARE, BC | END 2019-04-06 10:19 | disposition home or self-care (01) | LOC: ATC 00:28 | DX: R78.81 Bacteremia (principal); B95.4 Other streptococcus as the cause of diseases classified elsewhere; C34.90 Malignant neoplasm of unspecified part of unspecified bronchus or lung; J44.9 Chronic obstructive pulmonary disease, unspecified; I10 Essential (primary) hypertension; E78.5 Hyperlipidemia, unspecified; K21.9 Gastro-esophageal reflux disease without esophagitis; M19.90 Unspecified osteoarthritis, unspecified site; Z85.07 Personal history of malignant neoplasm of pancreas; Z90.710 Acquired absence of both cervix and uterus; Z90.49 Acquired absence of other specified parts of digestive tract; Z87.891 Personal history of nicotine dependence; Z88.5 Allergy status to narcotic agent; Z79.2 Long term (current) use of antibiotics; Z79.52 Long term (current) use of systemic steroids; Z79.51 Long term (current) use of inhaled steroids; Z79.899 Other long term (current) drug therapy | CPT/HCPCS: 96365; J0696 ==

== ENCOUNTER 2019-04-09 00:40 | Day surgery (SDC) | payer MEDICARE, BC | END 2019-04-09 23:49 | LOC: ATC 00:40 | DX: R78.81 Bacteremia (principal); B95.4 Other streptococcus as the cause of diseases classified elsewhere; C34.90 Malignant neoplasm of unspecified part of unspecified bronchus or lung; J44.9 Chronic obstructive pulmonary disease, unspecified; I10 Essential (primary) hypertension; E78.5 Hyperlipidemia, unspecified; K21.9 Gastro-esophageal reflux disease without esophagitis; M19.90 Unspecified osteoarthritis, unspecified site; Z79.2 Long term (current) use of antibiotics; Z79.51 Long term (current) use of inhaled steroids; Z79.899 Other long term (current) drug therapy; Z85.07 Personal history of malignant neoplasm of pancreas; Z90.710 Acquired absence of both cervix and uterus; Z90.49 Acquired absence of other specified parts of digestive tract; Z87.891 Personal history of nicotine dependence; Z88.5 Allergy status to narcotic agent ==

== ENCOUNTER → 2019-06-18 | Outpatient (CLI) | payer MEDICARE, BC | END | disposition home or self-care (01) | LOC: LAB SHORT 07:36 → PLD 07:36 | DX: L72.0 Epidermal cyst (principal) | CPT/HCPCS: 88304 ==

== ENCOUNTER → 2020-09-11 | Outpatient (CLI) | payer MEDICARE, BC ==
[~2020-09-11] MED LIST changes: +CEFU250T47; +CEFU500T30 PO; +OXYCODONE-ACET1 EAC3 PO; +PANT40 PO
[2020-09-11 12:34] LABS: BASOPHILS ABSOLUTE AUTO 0.04 K/mm3 (0.00-0.23); BASOPHILS PERCENT AUTO 0 % (0-2); EOSINOPHILS ABSOLUTE AUTO 0.12 K/mm3 (0.00-0.68); EOSINOPHILS PERCENT AUTO 1 % (0-6); Hematocrit 41.3 % (33.0-51.0); Hemoglobin 12.9 g/dL (11.5-16.0); IMMATURE GRAN ABSOLUTE AUTO 0.04 K/mm3 (0.00-0.10); IMMATURE GRAN PERCENT AUTO 0 % (0-1); LYMPHOCYTES PERCENT AUTO 9 % (21-46); MONOCYTES ABSOLUTE AUTO 0.95 K/mm3 (0.16-1.47); MONOCYTES PERCENT AUTO 9 % (4-13); Mean Corpuscular HGB 30.5 pg (26.0-34.0); Mean Corpuscular HGB Conc 31.2 g/dL (31.5-36.5); Mean Corpuscular Volume 98 fL (80-100); Mean Platelet Volume 12.5 fL (9.1-12.4); NEUTROPHILS ABSOLUTE AUTO 8.73 K/mm3 (1.96-9.15); NEUTROPHILS PERCENT AUTO 80 % (41-73); Platelet Count 223 K/mm3 (150-400); RDW Coefficient Variation 14.5 % (11.7-14.2); RDW Standard Deviation 51.8 fL (35.1-46.3); Red Blood Cell Count 4.23 M/mm3 (3.80-5.20); White Blood Cell Count 10.88 K/mm3 (4.00-11.30)
[2020-09-11 12:44] LABS: Albumin, Blood 2.7 g/dL (3.4-5.0); Albumin/Globulin Ratio 0.7 (0.8-1.8); Bilirubin, Total 0.9 mg/dL (0.1-1.0); Bun/Creatinine Ratio 15.9 (12.0-20.0); Calcium, Blood 8.2 mg/dL (8.5-10.1); Creatinine, Blood 1.26 mg/dL (0.40-1.00); Globulin, Blood 3.9 g/dL (2.2-4.0); Potassium, Blood 4.3 mmol/L (3.5-5.5); Total Protein, Blood 6.6 g/dL (6.4-8.2)
== END | disposition home or self-care (01) ==
LOC: LAB SHORT 12:29 → LAB EV 12:29
PROVIDERS: Physician Assistant Medical
DX: K13.79 Other lesions of oral mucosa (principal)
CPT/HCPCS: 80053; 85025

== ENCOUNTER 2020-09-18 23:49 | Inpatient (IN) | payer MEDICARE, BC ==
[~2020-09-18] VITALS: Ht 157.5 cm; Wt 45.9 kg
[~2020-09-18 23:49] MED LIST changes: -CEFU250T47; -CEFU500T30 PO; -OXYCODONE-ACET1 EAC3 PO; -PANT40 PO
[2020-09-19 00:32] LABS: BASOPHILS ABSOLUTE AUTO 0.04 K/mm3 (0.00-0.23); BASOPHILS PERCENT AUTO 0 % (0-2); EOSINOPHILS PERCENT AUTO 1 % (0-6); Hematocrit 33.6 % (33.0-51.0); Hemoglobin 10.6 g/dL (11.5-16.0); IMMATURE GRAN ABSOLUTE AUTO 0.07 K/mm3 (0.00-0.10); IMMATURE GRAN PERCENT AUTO 1 % (0-1); LYMPHOCYTES ABSOLUTE AUTO 0.95 K/mm3 (0.84-5.20); LYMPHOCYTES PERCENT AUTO 7 % (21-46); MONOCYTES PERCENT AUTO 6 % (4-13); Mean Corpuscular HGB 30.4 pg (26.0-34.0); Mean Corpuscular HGB Conc 31.5 g/dL (31.5-36.5); Mean Corpuscular Volume 96 fL (80-100); NEUTROPHILS ABSOLUTE AUTO 12.47 K/mm3 (1.96-9.15); NEUTROPHILS PERCENT AUTO 86 % (41-73); RDW Coefficient Variation 14.4 % (11.7-14.2); RDW Standard Deviation 50.6 fL (35.1-46.3); Red Blood Cell Count 3.49 M/mm3 (3.80-5.20); White Blood Cell Count 14.53 K/mm3 (4.00-11.30)
[2020-09-19 00:34] LABS: Mean Platelet Volume 12.4 fL (9.1-12.4); Platelet Count 246 K/mm3 (150-400)
[2020-09-19 01:06] LABS: Troponin I <0.015 ng/mL (0.000-0.040)
[2020-09-19 01:07] LABS: Alanine Aminotransfer (ALT/SGP 35 U/L (12-78); Albumin, Blood 2.2 g/dL (3.4-5.0); Albumin/Globulin Ratio 0.7 (0.8-1.8); Alk Phos 455 U/L (50-136); Anion Gap 4 mmol/L (6-16); Aspartate Aminotrans (AST/SGOT 50 U/L (12-37); Bilirubin, Total 0.6 mg/dL (0.1-1.0); Blood Urea Nitrogen 29 mg/dL (8-24); Bun/Creatinine Ratio 26.1 (12.0-20.0); CO2, Blood 26 mmol/L (21-32); Calcium, Blood 7.7 mg/dL (8.5-10.1); Chloride, Blood 108 mmol/L (98-108); Creatinine, Blood 1.11 mg/dL (0.40-1.00); Globulin, Blood 3.1 g/dL (2.2-4.0); Glomerular Filtration Rate 50 (60-); Glucose, Blood 121 mg/dL (70-99); Potassium, Blood 4.2 mmol/L (3.5-5.5); Sodium, Blood 138 mmol/L (136-145); Total Protein, Blood 5.3 g/dL (6.4-8.2)
[2020-09-19] MEDS ORDERED: CEFU250T47 (02:09)
[2020-09-19] MEDS ORDERED: CEFU500T30 PO (02:10)
[2020-09-19] MEDS ORDERED: OXYCODONE-ACET1 EAC3 PO (02:11)
[2020-09-19 03:48] LABS: Source, Urine Clean Catch
[2020-09-19 03:53] LABS: Bilirubin, Urine Neg (Neg); Blood, Urine Neg (Neg); Glucose Qualitative, Urine Neg (Neg); Ketones, Urine 2+ (Neg); Leukocyte Esterase, Urine 1+ (Neg); Nitrite, Urine Neg (Neg); Protein, Urine 1+ (Neg); Urobilinogen, Urine NORM (Normal)
[2020-09-19 04:23] LABS: Amorphous Light (0-Heavy); Appearance, Urine Clear (Clear); Bacteria Few /hpf; Color, Urine Yellow (P-Yellow); Mucus Light (0-Heavy); Red Blood Cells, Urine Not Seen /hpf (0-2); Squamous Epithelial Cells Few /hpf (Few); White Blood Cells, Urine 0-2 /hpf (0-5)
[2020-09-19 06:07] LABS: BASOPHILS ABSOLUTE AUTO 0.03 K/mm3 (0.00-0.23); BASOPHILS PERCENT AUTO 0 % (0-2); EOSINOPHILS ABSOLUTE AUTO 0.03 K/mm3 (0.00-0.68); EOSINOPHILS PERCENT AUTO 0 % (0-6); Hematocrit 27.4 % (33.0-51.0); Hemoglobin 8.6 g/dL (11.5-16.0); IMMATURE GRAN ABSOLUTE AUTO 0.06 K/mm3 (0.00-0.10); IMMATURE GRAN PERCENT AUTO 1 % (0-1); LYMPHOCYTES ABSOLUTE AUTO 1.28 K/mm3 (0.84-5.20); LYMPHOCYTES PERCENT AUTO 11 % (21-46); MONOCYTES ABSOLUTE AUTO 0.67 K/mm3 (0.16-1.47); MONOCYTES PERCENT AUTO 6 % (4-13); Mean Corpuscular HGB 30.6 pg (26.0-34.0); Mean Corpuscular HGB Conc 31.4 g/dL (31.5-36.5); Mean Corpuscular Volume 98 fL (80-100); Mean Platelet Volume 12.3 fL (9.1-12.4); NEUTROPHILS ABSOLUTE AUTO 9.21 K/mm3 (1.96-9.15); NEUTROPHILS PERCENT AUTO 82 % (41-73); Platelet Count 227 K/mm3 (150-400); RDW Coefficient Variation 14.4 % (11.7-14.2); RDW Standard Deviation 51.2 fL (35.1-46.3); Red Blood Cell Count 2.81 M/mm3 (3.80-5.20); White Blood Cell Count 11.28 K/mm3 (4.00-11.30)
[2020-09-19 06:27] LABS: International Normalized Ratio 1.27; Prothrombin Time Results 13.5 Sec (9.7-11.5)
[2020-09-19 06:29] LABS: Albumin/Globulin Ratio 0.7 (0.8-1.8); Bilirubin, Total 0.3 mg/dL (0.1-1.0); Bun/Creatinine Ratio 28.3 (12.0-20.0); Calcium, Blood 7.4 mg/dL (8.5-10.1); Creatinine, Blood 1.13 mg/dL (0.40-1.00); Globulin, Blood 2.7 g/dL (2.2-4.0); Potassium, Blood 4.8 mmol/L (3.5-5.5); Total Protein, Blood 4.7 g/dL (6.4-8.2)
[2020-09-19 12:11] LABS: Hematocrit 29.1 % (33.0-51.0); Hemoglobin 9.1 g/dL (11.5-16.0)
[2020-09-19 18:22] LABS: Hematocrit 34.3 % (33.0-51.0); Hemoglobin 10.6 g/dL (11.5-16.0)
[2020-09-20 00:09] LABS: Hematocrit 26.6 % (33.0-51.0); Hemoglobin 8.3 g/dL (11.5-16.0)
[2020-09-20 08:25] LABS: BASOPHILS ABSOLUTE AUTO 0.02 K/mm3 (0.00-0.23); BASOPHILS PERCENT AUTO 0 % (0-2); EOSINOPHILS ABSOLUTE AUTO 0.22 K/mm3 (0.00-0.68); EOSINOPHILS PERCENT AUTO 3 % (0-6); Hematocrit 26.3 % (33.0-51.0); Hemoglobin 8.3 g/dL (11.5-16.0); IMMATURE GRAN ABSOLUTE AUTO 0.02 K/mm3 (0.00-0.10); IMMATURE GRAN PERCENT AUTO 0 % (0-1); LYMPHOCYTES ABSOLUTE AUTO 1.03 K/mm3 (0.84-5.20); LYMPHOCYTES PERCENT AUTO 14 % (21-46); MONOCYTES ABSOLUTE AUTO 0.37 K/mm3 (0.16-1.47); MONOCYTES PERCENT AUTO 5 % (4-13); Mean Corpuscular HGB 30.7 pg (26.0-34.0); Mean Corpuscular HGB Conc 31.6 g/dL (31.5-36.5); Mean Corpuscular Volume 97 fL (80-100); Mean Platelet Volume 12.5 fL (9.1-12.4); NEUTROPHILS ABSOLUTE AUTO 5.69 K/mm3 (1.96-9.15); NEUTROPHILS PERCENT AUTO 77 % (41-73); Platelet Count 198 K/mm3 (150-400); RDW Coefficient Variation 14.4 % (11.7-14.2); RDW Standard Deviation 50.9 fL (35.1-46.3); White Blood Cell Count 7.35 K/mm3 (4.00-11.30)
[2020-09-21 04:39] LABS: BASOPHILS ABSOLUTE AUTO 0.04 K/mm3 (0.00-0.23); BASOPHILS PERCENT AUTO 0 % (0-2); EOSINOPHILS ABSOLUTE AUTO 0.28 K/mm3 (0.00-0.68); EOSINOPHILS PERCENT AUTO 3 % (0-6); Hematocrit 28.9 % (33.0-51.0); Hemoglobin 9.3 g/dL (11.5-16.0); IMMATURE GRAN ABSOLUTE AUTO 0.06 K/mm3 (0.00-0.10); IMMATURE GRAN PERCENT AUTO 1 % (0-1); LYMPHOCYTES ABSOLUTE AUTO 1.06 K/mm3 (0.84-5.20); LYMPHOCYTES PERCENT AUTO 10 % (21-46); MONOCYTES ABSOLUTE AUTO 0.66 K/mm3 (0.16-1.47); MONOCYTES PERCENT AUTO 6 % (4-13); Mean Corpuscular HGB 31.1 pg (26.0-34.0); Mean Corpuscular HGB Conc 32.2 g/dL (31.5-36.5); Mean Corpuscular Volume 97 fL (80-100); Mean Platelet Volume 12.6 fL (9.1-12.4); NEUTROPHILS ABSOLUTE AUTO 9.05 K/mm3 (1.96-9.15); NEUTROPHILS PERCENT AUTO 81 % (41-73); Platelet Count 227 K/mm3 (150-400); RDW Coefficient Variation 14.5 % (11.7-14.2); Red Blood Cell Count 2.99 M/mm3 (3.80-5.20); White Blood Cell Count 11.15 K/mm3 (4.00-11.30)
[2020-09-21] MEDS ORDERED: PANT40 PO ×2 (10:03→16:25)
[2020-09-21 13:38] LABS: Hematocrit 30.1 % (33.0-51.0); Hemoglobin 9.4 g/dL (11.5-16.0)
== END 2020-09-21 18:25 | disposition home or self-care (01) | DRG 381 ==
LOC: ER 23:49 → MEDS 23:50
PROVIDERS: Emergency Medicine; Internal Medicine; Internal Medicine Gastroenterology; ADMIT Internal Medicine
PROC: 0DB68ZX Excision of Stomach, Via Natural or Artificial Opening Endoscopic, Diagnostic (ICD-10-PCS; 2020-09-19)
PROC: 0DB98ZX Excision of Duodenum, Via Natural or Artificial Opening Endoscopic, Diagnostic (ICD-10-PCS; principal; 2020-09-19 14:30)
DX: K22.11 Ulcer of esophagus with bleeding (principal); D62 Acute posthemorrhagic anemia; K26.4 Chronic or unspecified duodenal ulcer with hemorrhage; K21.9 Gastro-esophageal reflux disease without esophagitis; F41.8 Other specified anxiety disorders; Z87.891 Personal history of nicotine dependence; I12.9 Hypertensive chronic kidney disease with stage 1 through stage 4 chronic kidney disease, or unspecified chronic kidney disease; N18.30 Chronic kidney disease, stage 3 unspecified; J44.9 Chronic obstructive pulmonary disease, unspecified; K74.60 Unspecified cirrhosis of liver
CPT/HCPCS: 36415; 71045; 74176; 80053; 81001; 82941; 83690; 84484; 85014; 85018; 85025; 85610; 86850; 86900; 86901; 88305; 88341; 88342; 93005; 93010; 96374; 99285; A9270; C9113; J2405; J2704; J7030; J7120

== ENCOUNTER 2020-10-06 16:05 | Observation (INO) | payer MEDICARE, BC ==
[~2020-10-06] VITALS: Ht 157.5 cm; Wt 38.3 kg
[~2020-10-06 16:05] MED LIST changes: +CEFU250T47; +CEFU500T30 PO; +OXYCODONE-ACET1 EAC3 PO; +PANT40 PO
[2020-10-06 17:11] LABS: BASOPHILS ABSOLUTE AUTO 0.03 K/mm3 (0.00-0.23); BASOPHILS PERCENT AUTO 0 % (0-2); EOSINOPHILS PERCENT AUTO 2 % (0-6); Hematocrit 22.6 % (33.0-51.0); Hemoglobin 6.8 g/dL (11.5-16.0); IMMATURE GRAN ABSOLUTE AUTO 0.03 K/mm3 (0.00-0.10); IMMATURE GRAN PERCENT AUTO 0 % (0-1); LYMPHOCYTES ABSOLUTE AUTO 2.03 K/mm3 (0.84-5.20); LYMPHOCYTES PERCENT AUTO 18 % (21-46); MONOCYTES ABSOLUTE AUTO 0.74 K/mm3 (0.16-1.47); MONOCYTES PERCENT AUTO 7 % (4-13); Mean Corpuscular HGB 29.7 pg (26.0-34.0); Mean Corpuscular HGB Conc 30.1 g/dL (31.5-36.5); Mean Corpuscular Volume 99 fL (80-100); NEUTROPHILS ABSOLUTE AUTO 8.16 K/mm3 (1.96-9.15); NEUTROPHILS PERCENT AUTO 73 % (41-73); Platelet Count 357 K/mm3 (150-400); RDW Coefficient Variation 15.1 % (11.7-14.2); RDW Standard Deviation 54.8 fL (35.1-46.3); Red Blood Cell Count 2.29 M/mm3 (3.80-5.20); White Blood Cell Count 11.19 K/mm3 (4.00-11.30)
[2020-10-06 17:28] LABS: Alanine Aminotransfer (ALT/SGP 31 U/L (12-78); Albumin, Blood 2.5 g/dL (3.4-5.0); Albumin/Globulin Ratio 0.8 (0.8-1.8); Alk Phos 368 U/L (50-136); Anion Gap 6 mmol/L (6-16); Aspartate Aminotrans (AST/SGOT 41 U/L (12-37); Bilirubin, Total 0.5 mg/dL (0.1-1.0); Blood Urea Nitrogen 18 mg/dL (8-24); Bun/Creatinine Ratio 13.4 (12.0-20.0); CO2, Blood 23 mmol/L (21-32); Calcium, Blood 8.1 mg/dL (8.5-10.1); Chloride, Blood 113 mmol/L (98-108); Creatinine, Blood 1.34 mg/dL (0.40-1.00); Globulin, Blood 3.3 g/dL (2.2-4.0); Glomerular Filtration Rate 41 (60-); Glucose, Blood 108 mg/dL (70-99); Potassium, Blood 4.2 mmol/L (3.5-5.5); Sodium, Blood 142 mmol/L (136-145); Total Protein, Blood 5.8 g/dL (6.4-8.2)
[2020-10-06 21:35] LABS: International Normalized Ratio 1.37; Prothrombin Time Results 14.5 Sec (9.7-11.5)
[2020-10-07 04:51] LABS: BASOPHILS ABSOLUTE AUTO 0.03 K/mm3 (0.00-0.23); BASOPHILS PERCENT AUTO 0 % (0-2); EOSINOPHILS ABSOLUTE AUTO 0.19 K/mm3 (0.00-0.68); EOSINOPHILS PERCENT AUTO 2 % (0-6); Hematocrit 26.8 % (33.0-51.0); Hemoglobin 8.7 g/dL (11.5-16.0); IMMATURE GRAN ABSOLUTE AUTO 0.03 K/mm3 (0.00-0.10); IMMATURE GRAN PERCENT AUTO 0 % (0-1); LYMPHOCYTES PERCENT AUTO 19 % (21-46); MONOCYTES ABSOLUTE AUTO 0.71 K/mm3 (0.16-1.47); MONOCYTES PERCENT AUTO 8 % (4-13); Mean Corpuscular HGB 29.2 pg (26.0-34.0); Mean Corpuscular HGB Conc 32.5 g/dL (31.5-36.5); Mean Platelet Volume 12.5 fL (9.1-12.4); NEUTROPHILS ABSOLUTE AUTO 5.87 K/mm3 (1.96-9.15); NEUTROPHILS PERCENT AUTO 70 % (41-73); Platelet Count 194 K/mm3 (150-400); RDW Coefficient Variation 16.1 % (11.7-14.2); RDW Standard Deviation 52.8 fL (35.1-46.3); Red Blood Cell Count 2.98 M/mm3 (3.80-5.20); White Blood Cell Count 8.43 K/mm3 (4.00-11.30)
[2020-10-07 04:53] LABS: Mean Corpuscular Volume 90 fL (80-100)
--- NOTE | 2020-10-07 04:55 | NUR ---
2ND UNIT PRBC COMPLETED AT 0430. PATIENT TOLERATED WELL. VSS NO TEMP, SOB, URTICARIA OR RASH NOTED
[2020-10-07 05:10] LABS: Albumin, Blood 2.2 g/dL (3.4-5.0); Albumin/Globulin Ratio 0.8 (0.8-1.8); Bilirubin, Total 1.4 mg/dL (0.1-1.0); Bun/Creatinine Ratio 16.2 (12.0-20.0); Calcium, Blood 7.4 mg/dL (8.5-10.1); Creatinine, Blood 1.36 mg/dL (0.40-1.00); Globulin, Blood 2.6 g/dL (2.2-4.0); Potassium, Blood 4.4 mmol/L (3.5-5.5); Total Protein, Blood 4.8 g/dL (6.4-8.2)
--- NOTE | 2020-10-07 05:20 | NUR ---
PATIENT ARRIVED FROM ER AT 0120 WITH FIRST UNIT OF PRBC JUST FINISHING UP.. NO DIFFICULTY TOLERATING DOSE. 2ND DOSE COMPLETED AT 0400. NO CHANGE IN VITAL SIGNS. PATIENT IS QUITE WORRIED ABOUT HOS SHE COULDN'T DEAL WITH THE HOSPITAL TELLING HER HER WEIGHT ON ADMISSION WAS 38KG. SHE WAS ASKING HOW SHE COULD'VE LOST SO MUCH WEIGHT. (WEIGHT VERIFIED TWICE) WILL REQUEST A NUTRITION CONSULT REGARDING HIGH DENSITY FOODS THAT COULD HELP HER SAFELY SUPPLEMENT HER DIET. GI PANEL STILL NOT COMPLETED. NO STOOL OVERNIGHT
[2020-10-07 09:10] LABS: Source, Urine Clean Catch
[2020-10-07 09:15] LABS: Appearance, Urine Clear (Clear); Bilirubin, Urine Neg (Neg); Blood, Urine Neg (Neg); Color, Urine Yellow (P-Yellow); Glucose Qualitative, Urine Neg (Neg); Ketones, Urine 1+ (Neg); Leukocyte Esterase, Urine Neg (Neg); Nitrite, Urine Neg (Neg); Protein, Urine Neg (Neg); Urobilinogen, Urine NORM (Normal)
--- NOTE | 2020-10-07 12:18 | NUR ---
DR JUDD, ADVANCE DIET REG
--- NOTE | 2020-10-07 17:35 | NUR ---
PT PLEASANT TODAY. X HUSB IN TO VISIT TODAY. SHE STATES ARE GOOD FRIENDS STILL. BOTH PLEASANT TODAY. PT NO C/O PAIN TODAY. NO BM TODAY. DID AMBULATE IN GARCIA WITH PT/OT. ALSO AMBULATED TO BATHROOM WITH MY ASST X2 TODAY. 1 MIN ASST. NO NEW CONCERNS NOTED. PT STATES IS NOT READY TO GO HOME. WANTS TO MAKE SURE IS HEALED ANOTHER DAY OR TWO AND NOT HAVE TO COME BACK LIKE JUST DID.. BED IN LOW POSITION, CALL LITE IN REACH, CALLS APPROP
--- NOTE | 2020-10-08 00:21 | NUR ---
No stool in greater than 24 hours. heavy equipment service technician informed. Will request order from hospitalist to DC contact isolation per protocol.
--- NOTE | 2020-10-08 03:20 | NUR ---
PATIENT SLEPT WELL GETTING OOB TWICE OVERNIGHT TO USE BATHROOM. NO STOOL SINCE ADMISSION, SO GI PANEL DC'D PER ORDER AND PROTOCOL. PATIENT EXPRESSED WISH TO STAY ONE MORE NIGHT SHE STILL FEELS SHE IS NOT STABLE FOR DC HOME. NO FURTHER CHANGES
[2020-10-08 12:22] LABS: BASOPHILS ABSOLUTE AUTO 0.03 K/mm3 (0.00-0.23); BASOPHILS PERCENT AUTO 0 % (0-2); EOSINOPHILS ABSOLUTE AUTO 0.23 K/mm3 (0.00-0.68); EOSINOPHILS PERCENT AUTO 3 % (0-6); Hematocrit 26.5 % (33.0-51.0); Hemoglobin 8.6 g/dL (11.5-16.0); IMMATURE GRAN ABSOLUTE AUTO 0.02 K/mm3 (0.00-0.10); IMMATURE GRAN PERCENT AUTO 0 % (0-1); LYMPHOCYTES ABSOLUTE AUTO 1.04 K/mm3 (0.84-5.20); LYMPHOCYTES PERCENT AUTO 14 % (21-46); MONOCYTES ABSOLUTE AUTO 0.54 K/mm3 (0.16-1.47); MONOCYTES PERCENT AUTO 8 % (4-13); Mean Corpuscular HGB 29.6 pg (26.0-34.0); Mean Corpuscular HGB Conc 32.5 g/dL (31.5-36.5); Mean Corpuscular Volume 91 fL (80-100); Mean Platelet Volume 12.3 fL (9.1-12.4); NEUTROPHILS ABSOLUTE AUTO 5.34 K/mm3 (1.96-9.15); NEUTROPHILS PERCENT AUTO 74 % (41-73); Platelet Count 177 K/mm3 (150-400); RDW Coefficient Variation 16.3 % (11.7-14.2); RDW Standard Deviation 54.2 fL (35.1-46.3); Red Blood Cell Count 2.91 M/mm3 (3.80-5.20)
--- NOTE | 2020-10-08 15:44 | NUR ---
PT UP WALKING IN GARCIA WITH X . WALKED TO ELEVATORS AND BY PIG THEN MADE FULL CORNER LOOP TO NURSE STATION AND AROUND. BACK TO BED AT THIS TIME.
--- NOTE | 2020-10-08 16:37 | NUR ---
PT IN MOSTLY GOOD CHEER TODAY. DID WALK AROUND TRIANGLE TODAY AND OUT TO ELEVATOR. X HUSB IN TO VISIT TODAY. NO NEW CONCERNS NOTED. BED IN LOW POSITION, CALL LITE IN REACH, CALLS APPROP
--- NOTE | 2020-10-09 05:55 | NUR ---
SLEPT WELL. NO CHANGES. LOOKING FORWARD TO SEEING HER ANIMALS AT HOME TODAY
[2020-10-09] MEDS ORDERED: ONDA4ODT MM (14:04)
--- NOTE | 2020-10-09 14:24 | NUR ---
Advance Directive (AD) education attempted. Upon receiving a referral for AD education, I visit patient. Patient tells me that she has no interest in AD education and that she already has one. I explain that she does not have an AD on file at [facility] and she states that she filled one out as part of her will and that her disability attorney has it on file. She re-states her disinterest in AD education.
--- NOTE | 2020-10-09 15:06 | NUR ---
REVIEW D'C. ODALYS HAS F/U APPT 10/17 WITH HER PRIMARY. AWARE HAS ONE MED AT [facility] AWARE NEEDS F/U LABS. ANSWER ALL QUESTIONS. VERBALIZES UNDERSTANDING. IN W/C TO POV W/[facility] REDEVELOPMENT SPECIALIST AND ADULT MALE. AWARE CAN RETURN TO E.R. IF ANY PROBLEMS
== END 2020-10-09 15:03 | disposition home health service (06) ==
LOC: ER 16:05 → MEDS 16:06 → ENPENDDIS 10-09 14:40 → MEDS 10-09 15:03
PROVIDERS: Emergency Medicine; Internal Medicine; Physician Assistant; ADMIT Internal Medicine
DX: K52.9 Noninfective gastroenteritis and colitis, unspecified (principal); E86.0 Dehydration; D62 Acute posthemorrhagic anemia; K26.9 Duodenal ulcer, unspecified as acute or chronic, without hemorrhage or perforation; I12.9 Hypertensive chronic kidney disease with stage 1 through stage 4 chronic kidney disease, or unspecified chronic kidney disease; N18.30 Chronic kidney disease, stage 3 unspecified; J44.9 Chronic obstructive pulmonary disease, unspecified; E78.5 Hyperlipidemia, unspecified; K21.00 Gastro-esophageal reflux disease with esophagitis, without bleeding; N20.0 Calculus of kidney; Z85.07 Personal history of malignant neoplasm of pancreas; Z85.118 Personal history of other malignant neoplasm of bronchus and lung; Z87.891 Personal history of nicotine dependence; Z88.5 Allergy status to narcotic agent
CPT/HCPCS: 36415; 36430; 71045; 80053; 81003; 83690; 85025; 85610; 85730; 86850; 86900; 86901; 86923; 93005; 93010; 94760; 96374-59; 96376; 97110; 97112; 97116; 97161; 99285-25; A9270; C9113; G0378; J7030; P9016

== ENCOUNTER → 2020-10-30 | Outpatient (CLI) | payer MEDICARE, BC ==
[2020-10-30 12:53] LABS: BASOPHILS ABSOLUTE AUTO 0.05 K/mm3 (0.00-0.23); BASOPHILS PERCENT AUTO 1 % (0-2); EOSINOPHILS ABSOLUTE AUTO 0.22 K/mm3 (0.00-0.68); EOSINOPHILS PERCENT AUTO 3 % (0-6); Hematocrit 31.2 % (33.0-51.0); Hemoglobin 9.4 g/dL (11.5-16.0); IMMATURE GRAN ABSOLUTE AUTO 0.01 K/mm3 (0.00-0.10); IMMATURE GRAN PERCENT AUTO 0 % (0-1); LYMPHOCYTES ABSOLUTE AUTO 0.91 K/mm3 (0.84-5.20); LYMPHOCYTES PERCENT AUTO 14 % (21-46); MONOCYTES ABSOLUTE AUTO 0.52 K/mm3 (0.16-1.47); MONOCYTES PERCENT AUTO 8 % (4-13); Mean Corpuscular HGB 28.1 pg (26.0-34.0); Mean Corpuscular HGB Conc 30.1 g/dL (31.5-36.5); Mean Corpuscular Volume 93 fL (80-100); Mean Platelet Volume 11.2 fL (9.1-12.4); NEUTROPHILS ABSOLUTE AUTO 4.75 K/mm3 (1.96-9.15); NEUTROPHILS PERCENT AUTO 74 % (41-73); Platelet Count 346 K/mm3 (150-400); RDW Coefficient Variation 16.6 % (11.7-14.2); RDW Standard Deviation 56.6 fL (35.1-46.3); Red Blood Cell Count 3.35 M/mm3 (3.80-5.20); White Blood Cell Count 6.46 K/mm3 (4.00-11.30)
[2020-10-30 13:03] LABS: Albumin, Blood 2.8 g/dL (3.4-5.0); Albumin/Globulin Ratio 0.7 (0.8-1.8); Bilirubin, Total 0.4 mg/dL (0.1-1.0); Bun/Creatinine Ratio 6.1 (12.0-20.0); Calcium, Blood 7.8 mg/dL (8.5-10.1); Creatinine, Blood 1.32 mg/dL (0.40-1.00); Potassium, Blood 4.5 mmol/L (3.5-5.5); Total Protein, Blood 6.8 g/dL (6.4-8.2)
== END | disposition home or self-care (01) ==
LOC: LAB 12:48 → LAB SHORT 12:48
PROVIDERS: Physician Assistant Medical
DX: R19.7 Diarrhea, unspecified (principal)
CPT/HCPCS: 80053; 85025

== ENCOUNTER 2021-02-18 03:00 | Emergency (ER) | payer MEDICARE, BC ==
[~2021-02-18] VITALS: Ht 157.5 cm; Wt 47.2 kg
[2021-02-18 04:40] LABS: Source, Urine Clean Catch
[2021-02-18 04:43] LABS: Appearance, Urine Cloudy (Clear); Bilirubin, Urine Neg (Neg); Blood, Urine Neg (Neg); Color, Urine Yellow (P-Yellow); Glucose Qualitative, Urine Neg (Neg); Ketones, Urine Neg (Neg); Leukocyte Esterase, Urine Neg (Neg); Nitrite, Urine Neg (Neg); Protein, Urine Neg (Neg); Urobilinogen, Urine NORM (Normal)
[2021-02-18 05:04] LABS: Bacteria Few /hpf; Squamous Epithelial Cells Few /hpf (Few); White Blood Cells, Urine 0-2 /hpf (0-5); Yeast/Fungi Urine Rare /hpf
[2021-02-18 06:18] LABS: BASOPHILS ABSOLUTE AUTO 0.02 K/mm3 (0.00-0.23); BASOPHILS PERCENT AUTO 0 % (0-2); EOSINOPHILS ABSOLUTE AUTO 0.01 K/mm3 (0.00-0.68); EOSINOPHILS PERCENT AUTO 0 % (0-6); Hematocrit 31.7 % (33.0-51.0); Hemoglobin 9.7 g/dL (11.5-16.0); IMMATURE GRAN ABSOLUTE AUTO 0.03 K/mm3 (0.00-0.10); IMMATURE GRAN PERCENT AUTO 0 % (0-1); LYMPHOCYTES ABSOLUTE AUTO 0.55 K/mm3 (0.84-5.20); LYMPHOCYTES PERCENT AUTO 6 % (21-46); MONOCYTES ABSOLUTE AUTO 0.66 K/mm3 (0.16-1.47); MONOCYTES PERCENT AUTO 7 % (4-13); Mean Corpuscular HGB 28.1 pg (26.0-34.0); Mean Corpuscular HGB Conc 30.6 g/dL (31.5-36.5); Mean Corpuscular Volume 92 fL (80-100); Mean Platelet Volume 12.4 fL (9.1-12.4); NEUTROPHILS ABSOLUTE AUTO 8.23 K/mm3 (1.96-9.15); NEUTROPHILS PERCENT AUTO 87 % (41-73); Platelet Count 214 K/mm3 (150-400); RDW Coefficient Variation 16.2 % (11.7-14.2); Red Blood Cell Count 3.45 M/mm3 (3.80-5.20)
[2021-02-18 06:53] LABS: Bun/Creatinine Ratio 10.2 (12.0-20.0); Calcium, Blood 8.5 mg/dL (8.5-10.1); Creatinine, Blood 0.98 mg/dL (0.40-1.00); Potassium, Blood 3.8 mmol/L (3.5-5.5)
[2021-02-18] MEDS ORDERED: TAMS.4ER PO (08:28)
== END 2021-02-18 09:34 | disposition home or self-care (01) ==
LOC: ER 03:00
PROVIDERS: Student in an Organized Health Care Education/Training Program
DX: N13.2 Hydronephrosis with renal and ureteral calculous obstruction (principal); I12.9 Hypertensive chronic kidney disease with stage 1 through stage 4 chronic kidney disease, or unspecified chronic kidney disease; N18.9 Chronic kidney disease, unspecified; E78.5 Hyperlipidemia, unspecified; Z87.891 Personal history of nicotine dependence; Z88.5 Allergy status to narcotic agent; Z79.899 Other long term (current) drug therapy
CPT/HCPCS: 74177; 80048; 81001; 85025; 87086; 93005; 93010; 96374; 99284-25; A9270; J1885; J2405; Q9967

== ENCOUNTER 2021-04-25 18:27 | Inpatient (IN) | payer MEDICARE, BC ==
[~2021-04-25] VITALS: Ht 157.5 cm; Wt 47.3 kg
[~2021-04-25 18:27] MED LIST changes: +TAMS.4ER PO
[2021-04-25 19:03] LABS: BASOPHILS ABSOLUTE AUTO 0.05 K/mm3 (0.00-0.23); BASOPHILS PERCENT AUTO 0 % (0-2); EOSINOPHILS PERCENT AUTO 1 % (0-6); IMMATURE GRAN ABSOLUTE AUTO 0.04 K/mm3 (0.00-0.10); IMMATURE GRAN PERCENT AUTO 0 % (0-1); LYMPHOCYTES ABSOLUTE AUTO 1.51 K/mm3 (0.84-5.20); LYMPHOCYTES PERCENT AUTO 12 % (21-46); MONOCYTES ABSOLUTE AUTO 1.36 K/mm3 (0.16-1.47); MONOCYTES PERCENT AUTO 11 % (4-13); Mean Corpuscular HGB 29.1 pg (26.0-34.0); Mean Corpuscular Volume 94 fL (80-100); Mean Platelet Volume 11.4 fL (9.1-12.4); NEUTROPHILS ABSOLUTE AUTO 9.75 K/mm3 (1.96-9.15); NEUTROPHILS PERCENT AUTO 76 % (41-73); Platelet Count 503 K/mm3 (150-400); RDW Coefficient Variation 18.4 % (11.7-14.2); RDW Standard Deviation 62.7 fL (35.1-46.3); Red Blood Cell Count 3.09 M/mm3 (3.80-5.20); White Blood Cell Count 12.81 K/mm3 (4.00-11.30)
[2021-04-25 19:42] LABS: Alanine Aminotransfer (ALT/SGP 22 U/L (12-78); Albumin, Blood 1.7 g/dL (3.4-5.0); Albumin/Globulin Ratio 0.4 (0.8-1.8); Alk Phos 469 U/L (50-136); Anion Gap 6 mmol/L (6-16); Aspartate Aminotrans (AST/SGOT 46 U/L (12-37); Bilirubin, Total 1.4 mg/dL (0.1-1.0); Blood Urea Nitrogen 21 mg/dL (8-24); Bun/Creatinine Ratio 23.3 (12.0-20.0); CO2, Blood 26 mmol/L (21-32); Calcium, Blood 7.8 mg/dL (8.5-10.1); Chloride, Blood 110 mmol/L (98-108); Globulin, Blood 4.1 g/dL (2.2-4.0); Glomerular Filtration Rate >60 (60-); Glucose, Blood 137 mg/dL (70-99); Potassium, Blood 3.7 mmol/L (3.5-5.5); Sodium, Blood 142 mmol/L (136-145); Total Protein, Blood 5.8 g/dL (6.4-8.2)
[2021-04-25 19:57] LABS: Influenza A, PCR NEGATIVE (NEGATIVE); Influenza B, PCR NEGATIVE (NEGATIVE); Resp Syncytial Virus, PCR NEGATIVE (NEGATIVE); SARS-Cov-2 (COVID-19) PCR, MMC NEGATIVE (NEGATIVE)
[2021-04-25 22:04] LABS: International Normalized Ratio 1.43; Prothrombin Time Results 14.7 Sec (9.7-11.5)
--- NOTE | 2021-04-26 00:33 | NUR ---
CALL RETURNED TO VERÓNICA BUSTAMANTE FOR REPORT AT 1159. VERÓNICA BUSTAMANTE UNAVAILABLE PER ALEXEI BUSTAMANTE. AWAITING RETURN CALL TO GET REPORT FROM ED RN FOR ADMISSION.
[2021-04-26 01:07] LABS: Hematocrit 21.2 % (33.0-51.0); Hemoglobin 6.6 g/dL (11.5-16.0)
[2021-04-26 08:00] LABS: BASOPHILS ABSOLUTE AUTO 0.02 K/mm3 (0.00-0.23); BASOPHILS PERCENT AUTO 0 % (0-2); EOSINOPHILS ABSOLUTE AUTO 0.07 K/mm3 (0.00-0.68); EOSINOPHILS PERCENT AUTO 1 % (0-6); IMMATURE GRAN ABSOLUTE AUTO 0.04 K/mm3 (0.00-0.10); IMMATURE GRAN PERCENT AUTO 0 % (0-1); LYMPHOCYTES ABSOLUTE AUTO 1.58 K/mm3 (0.84-5.20); LYMPHOCYTES PERCENT AUTO 16 % (21-46); MONOCYTES ABSOLUTE AUTO 0.85 K/mm3 (0.16-1.47); MONOCYTES PERCENT AUTO 8 % (4-13); Mean Corpuscular HGB 29.2 pg (26.0-34.0); Mean Corpuscular HGB Conc 30.9 g/dL (31.5-36.5); Mean Corpuscular Volume 95 fL (80-100); Mean Platelet Volume 11.2 fL (9.1-12.4); NEUTROPHILS ABSOLUTE AUTO 7.62 K/mm3 (1.96-9.15); NEUTROPHILS PERCENT AUTO 75 % (41-73); Platelet Count 282 K/mm3 (150-400); RDW Coefficient Variation 18.6 % (11.7-14.2); RDW Standard Deviation 63.7 fL (35.1-46.3); Red Blood Cell Count 1.85 M/mm3 (3.80-5.20); White Blood Cell Count 10.18 K/mm3 (4.00-11.30)
[2021-04-26 08:15] LABS: Hemoglobin 5.4 g/dL (11.5-16.0)
[2021-04-26 08:16] LABS: Hematocrit 17.5 % (33.0-51.0)
[2021-04-26 08:33] LABS: Albumin, Blood 1.9 g/dL (3.4-5.0); Albumin/Globulin Ratio 0.7 (0.8-1.8); Bilirubin, Total 1.2 mg/dL (0.1-1.0); Bun/Creatinine Ratio 22.3 (12.0-20.0); Calcium, Blood 7.2 mg/dL (8.5-10.1); Creatinine, Blood 1.03 mg/dL (0.40-1.00); Globulin, Blood 2.6 g/dL (2.2-4.0); Total Protein, Blood 4.5 g/dL (6.4-8.2)
[2021-04-26 12:25] LABS: Hematocrit 23.1 % (33.0-51.0); Hemoglobin 7.3 g/dL (11.5-16.0)
--- NOTE | 2021-04-26 14:50 | NUR ---
TRANSFER TO MEDICAL UNIT: LATE ENTRY: REPORT CALLED TO CHARO SANTANA RN. PATIENT DENIED NAUSEA THROUGHOUT THE SHIFT. NO EMESIS OR STOOLS DURING THE MORNING. MEDICATED ONCE PER PRNS FOR ABDOMINAL PAIN. PATIENT UP TO BEDSIDE COMMODE. PATIENT REPORTED MILD DIZZINESS THAT RESOLVED WITH SITTING FOR A MOMENT PRIOR TO TRANSFERING. PATIENT STEADY ON HER FEET AND WEAK. PATIENT MADE NPO AT [address] LYNCH REQUEST. PATIENT RECEIVING SECOND UNIT OF BLOOD. REPEAT H/H COMPLETED AFTER FIRST UNIT WAS 7.3/23.1. RECEIVING RN NOTIFIED. PATIENT STABLE AT TIME OF TRANSFER.
--- NOTE | 2021-04-26 15:09 | NUR ---
INTO SDS ADMISSION TO UNIT STARTED.
--- NOTE | 2021-04-26 16:04 | NUR ---
PT ARRIVED FROM THE ER VIA GURNEY, BLOOD INFUSING, PT ORIENTED TO ROOM AND CALL SYSTEM, DAY SURGERY UP TO GET THE PT FOR PROCEDURE SHORTLY AFTER HER ARRIVAL, PT CURRENTLY GETTING UPPER ENDO, WILL AWAIT HER RETURN
--- NOTE | 2021-04-26 16:08 | NUR ---
04/26/21 1608 Sohail Hutchinson PATIENT DETERMINED TO BE ASA APPROPRIATE FOR PROPOFOL SEDATION PRIOR TO START OF PROCEDURE BY DR. LYNCH. Bite Block Placed. 3-LEAD EKG REVIEWED WITH PHYSICIAN PRIOR TO START OF PROCEDURE. Patient to ENDO 1. History, Chart, Medications and Allergies reviewed before start of procedure. MONITOR INTACT WITH CONTINUOUS PULSE OXIMETRY AND INTERMITTENT BP. O2 VIA N/C INTACT THROUGHOUT SEDATION/PROCEDURE. POM MASK APPLIED AT START OF PROCEDURE
--- NOTE | 2021-04-26 17:13 | NUR ---
SUMMARY PT BACK FROM PROCEDURE, ASSOCIATE STORE LEADER AT THE BEDSIDE, PT DENIES PAIN, AWAITING DIET ORDERS FROM WILI DANIEL, WILL CONT TO MONITOR
[2021-04-26 17:20] LABS: Hemoglobin 10.2 g/dL (11.5-16.0)
[2021-04-27 05:19] LABS: BASOPHILS ABSOLUTE AUTO 0.03 K/mm3 (0.00-0.23); BASOPHILS PERCENT AUTO 0 % (0-2); EOSINOPHILS ABSOLUTE AUTO 0.37 K/mm3 (0.00-0.68); EOSINOPHILS PERCENT AUTO 4 % (0-6); Hematocrit 27.6 % (33.0-51.0); Hemoglobin 9.2 g/dL (11.5-16.0); IMMATURE GRAN ABSOLUTE AUTO 0.05 K/mm3 (0.00-0.10); IMMATURE GRAN PERCENT AUTO 1 % (0-1); LYMPHOCYTES ABSOLUTE AUTO 1.39 K/mm3 (0.84-5.20); LYMPHOCYTES PERCENT AUTO 15 % (21-46); MONOCYTES ABSOLUTE AUTO 0.74 K/mm3 (0.16-1.47); MONOCYTES PERCENT AUTO 8 % (4-13); Mean Corpuscular HGB 30.1 pg (26.0-34.0); Mean Corpuscular HGB Conc 33.3 g/dL (31.5-36.5); Mean Platelet Volume 11.2 fL (9.1-12.4); NEUTROPHILS PERCENT AUTO 73 % (41-73); Platelet Count 253 K/mm3 (150-400); RDW Coefficient Variation 17.4 % (11.7-14.2); RDW Standard Deviation 55.9 fL (35.1-46.3); Red Blood Cell Count 3.06 M/mm3 (3.80-5.20); White Blood Cell Count 9.58 K/mm3 (4.00-11.30)
[2021-04-27 05:34] LABS: Mean Corpuscular Volume 90 fL (80-100)
--- NOTE | 2021-04-27 06:25 | NUR ---
SHIFT SUMMARY: PATIENT IS A&OX4, VSS, UP TO THE BSC WITH ASSIST OF 1. PATIENT REPORTED NAUSEA AT HS, ZOFRAN WAS GIVEN WITH GOOD EFFFECT.
[2021-04-27 10:41] LABS: Source, Urine Clean Catch
[2021-04-27 11:10] LABS: Appearance, Urine Clear (Clear); Bilirubin, Urine Neg (Neg); Blood, Urine Neg (Neg); Color, Urine Yellow (P-Yellow); Glucose Qualitative, Urine Neg (Neg); Ketones, Urine Neg (Neg); Leukocyte Esterase, Urine Neg (Neg); Nitrite, Urine Neg (Neg); Protein, Urine Neg (Neg); Specific Gravity, Urine 1.015 (1.003-1.022); Urobilinogen, Urine NORM (Normal)
--- NOTE | 2021-04-27 16:32 | NUR ---
Initial Interview with [facility] Community Stripper Apprentice 1. Who did you speak with? Spoke with patient 2. What is the patient's prior level of functions? Patient lives independently and able to perform most ADLs but admits to needing assistance with housekeeping and cooking. I spoke with patient's son Quintin [phone]. half-way goal is for patient to move to [place] with Quintin. Quintin's home I due to a water leak is under repair and won't be ready for his mother to move in for several months. Quintin called [employer] Whe[employer] and has meals delivered to patient's home and he has called around to different agencies to assist until his mother can move to [place]. Patient has some support from friends-[place] [phone], Radha Miles, and her ex-. Patient presently does not use DME for ADL assistance. Patient states her home is safe with running water, heat, electricity, and sewage. 3. What is the patient's current living situation? Patient lives independently, but has assistance from friends as needed. 4. Is the patient and/or family able to provide transportation to and from doctor's appointments and cigar packer and picker prescriptions? Patient does not drive. Radha and her ex- provides transportation as needed. 5. Does patient still drive? No 6. POA/PCP/NOK: NOK: Moises Sifuentes [phone]/PCP: ILDA Bedoya 7. Discharge goals: Home/TBD -TBD -Medication Management: Independent -Preferred Pharmacy: [facility] -Housekeeping need: Yes would like assistance with ADLs -Cooking: Meals on Wheels 8. List barriers to discharge: None known at this time 9. Discharge Plan: Home/Home Health-no preference [facility] contacted 10. PCP Follow up appointment: Will be scheduled within seven calendar days of discharge
--- NOTE | 2021-04-27 17:51 | NUR ---
SHIFT SUMMARY PATIENT IS ALERT AND ORIENTED X3. NO ACUTE ISSUES THIS SHIFT. VITAL SIGNS REVIEWED. PATIENT HAS DENIED ANY PAIN, NAUSEA, SOB OR VOMITTING THIS SHIFT. NO ACUTE ISSUES THIS SHIFT. PATIENT IS AWAITING DISCHARGE HOME WITH HOME HEALTH. WILL MONITOR UNTIL SHIFT CHANGE.
[2021-04-28 05:04] LABS: BASOPHILS ABSOLUTE AUTO 0.05 K/mm3 (0.00-0.23); BASOPHILS PERCENT AUTO 1 % (0-2); EOSINOPHILS ABSOLUTE AUTO 0.52 K/mm3 (0.00-0.68); EOSINOPHILS PERCENT AUTO 5 % (0-6); Hematocrit 30.9 % (33.0-51.0); Hemoglobin 9.9 g/dL (11.5-16.0); IMMATURE GRAN ABSOLUTE AUTO 0.04 K/mm3 (0.00-0.10); IMMATURE GRAN PERCENT AUTO 0 % (0-1); LYMPHOCYTES ABSOLUTE AUTO 1.23 K/mm3 (0.84-5.20); LYMPHOCYTES PERCENT AUTO 12 % (21-46); MONOCYTES ABSOLUTE AUTO 0.72 K/mm3 (0.16-1.47); MONOCYTES PERCENT AUTO 7 % (4-13); Mean Corpuscular HGB 30.2 pg (26.0-34.0); Mean Corpuscular Volume 94 fL (80-100); Mean Platelet Volume 11.2 fL (9.1-12.4); NEUTROPHILS ABSOLUTE AUTO 7.59 K/mm3 (1.96-9.15); NEUTROPHILS PERCENT AUTO 75 % (41-73); Platelet Count 286 K/mm3 (150-400); Red Blood Cell Count 3.28 M/mm3 (3.80-5.20); White Blood Cell Count 10.15 K/mm3 (4.00-11.30)
--- NOTE | 2021-04-28 05:20 | NUR ---
NO ACUTE CHANGES TO PT CONDITION DURING THIS SHIFT. PT MEDICATED FOR ABD PAIN PER EMAR. PT UP TO COMMODE WITH ASSISTANCE X 2-3 THIS SHIFT. PT UNSTEADY ON HER FEET, NOT ABLE TO GET TO COMMODE ON HER OWN. PT STS SHE DOES NOT THINK SHE SHOULD BE DISHCARGED TODAY. CALL LIGHT WITHIN REACH AND WILL CONTINUE TO MONITOR.
[2021-04-28 05:32] LABS: Albumin, Blood 1.7 g/dL (3.4-5.0); Albumin/Globulin Ratio 0.5 (0.8-1.8); Bun/Creatinine Ratio 19.6 (12.0-20.0); Calcium, Blood 7.8 mg/dL (8.5-10.1); Creatinine, Blood 1.02 mg/dL (0.40-1.00); Globulin, Blood 3.3 g/dL (2.2-4.0); Potassium, Blood 4.1 mmol/L (3.5-5.5)
--- NOTE | 2021-04-28 17:50 | NUR ---
SHIFT SUMMARY: NO ACUTE EVENTS. NO EVENTS ON TELEMETRY, SR 60-80'S WITH OCC PVC'S. C/O NAUSEA THIS MORNING, WAS UNABLE TO EAT BREAKFAST; MEDICATED WITH ZOFRAN WITH RELIEF. C/O RUQ PAIN THIS AFTERNOON; MEDICATED WITH FENTANYL WITH RELIEF. LBM 04/26/21; BOWEL MEDS GIVEN, REFUSED LACTULOSE. EATING DINNER TONIGHT WITHOUT INCIDENT, WELL TOLERATED SO FAR. DEFERRED BATHING UNTIL FEELING BETTER. HOPEFUL FOR D/C HOME TOMORROW.
--- NOTE | 2021-04-28 18:40 | NUR ---
CARE MGMT/SOCIAL WORK: SPOKE WITH PT'S NEIGHBOR DANYEL AT BEDSIDE. ELIZABETHArchana STATES THAT ANAM, D/T HER MACULAR DEGENERATION, IS UNABLE TO BATHE OR COOK FOR HERSELF, WILL NEED HELP IN THE HOME FOR ADL'S, MEAL PREP, AND MEDICATION MANAGEMENT PRIOR TO D/C. EXPLAINED TO DANYEL THAT KEEPING PATIENT IN THE HOSPITAL IS NOT FEASIBLE AND THAT IN-HOME CARE CAN BE ARRANGED WITH PT OUTPT (PT'S SON IS CURRENTLY WORKING ON THIS). SON MAY NEED ASSISTANCE AND RESOURCES FROM CARE MGMT.
--- NOTE | 2021-04-28 20:47 | NUR ---
PT NOTED TO BE 86% ON ROOM AIR AT TIME OF VITALS. PT PLACED ON 3L BY NC WITH IMPROVEMENT TO 94%. HOSPITALIST CONTACTED AND ORDER OBTAINED FOR OXYGEN.
--- NOTE | 2021-04-29 04:59 | NUR ---
CRIMINAL ATTORNEY SUMMARY ADMITTED AND TREATED FOR AN UPPER GI BLEED. PT IS A DNR. PLAN FOR DISCHARGE HOME ON HOME HEALTH TOMORROW. SHE DOES REPORT SOME EPIGASTRIC PAIN BUT REFUSES PAIN MEDICATION AT HS. REFUSES NAUSEA MEDICATION DUE TO WANTING TO SLEEP. SHE STATES THAT SHE FEELS VERY WEAK AND IS NOT READY TO GO HOME YET. PT IS A TWO PERSON ASSIST TO BSC. SHE IS ALERT AND ORIENTED X3.
--- NOTE | 2021-04-29 17:25 | NUR ---
SHIFT SUMMARY: NO ACUTE EVENTS. NO BM YET, HAS BEEN GIVEN ALL BOWEL MEDS BUT ONLY DRANK ABOUT HALF OF LACTULOSE THE TASTE DISGUSTS HER. NO EVENTS ON TELEMETRY, SR 60-70'S WITH PVC'S. DENIED PAIN. APPETITE HAS IMPROVED. DECLINED SHOWER AND WALKING TODAY SHE STATED SHE WANTED TO REST.
[2021-04-30 05:31] LABS: BASOPHILS ABSOLUTE AUTO 0.04 K/mm3 (0.00-0.23); BASOPHILS PERCENT AUTO 0 % (0-2); EOSINOPHILS PERCENT AUTO 4 % (0-6); Hematocrit 33.9 % (33.0-51.0); Hemoglobin 10.9 g/dL (11.5-16.0); IMMATURE GRAN ABSOLUTE AUTO 0.04 K/mm3 (0.00-0.10); IMMATURE GRAN PERCENT AUTO 0 % (0-1); LYMPHOCYTES ABSOLUTE AUTO 1.06 K/mm3 (0.84-5.20); LYMPHOCYTES PERCENT AUTO 11 % (21-46); MONOCYTES ABSOLUTE AUTO 1.06 K/mm3 (0.16-1.47); MONOCYTES PERCENT AUTO 11 % (4-13); Mean Corpuscular HGB 30.4 pg (26.0-34.0); Mean Corpuscular HGB Conc 32.2 g/dL (31.5-36.5); Mean Corpuscular Volume 95 fL (80-100); Mean Platelet Volume 10.9 fL (9.1-12.4); NEUTROPHILS ABSOLUTE AUTO 7.46 K/mm3 (1.96-9.15); NEUTROPHILS PERCENT AUTO 74 % (41-73); Platelet Count 326 K/mm3 (150-400); RDW Coefficient Variation 18.4 % (11.7-14.2); RDW Standard Deviation 59.9 fL (35.1-46.3); Red Blood Cell Count 3.58 M/mm3 (3.80-5.20); White Blood Cell Count 10.06 K/mm3 (4.00-11.30)
--- NOTE | 2021-04-30 05:55 | NUR ---
MERCHANDISING DIRECTOR SUMMARY PT REFUSED BOWEL MEDS THIS SHIFT, REPORTING THAT SHE JUST "WANTS TO SLEEP." SHE REQUESTED TO USE THE BSC MULTIPLE TIMES THIS AM WITH NO URINARY OUTPUT OR BM. PT DENIES ANY NAUSEA OR PAIN THIS SHIFT. SHE WAS ENCOURAGED TO DRINK FLUIDS AND TRY EATING TODAY. PT AGREEABLE. PT REPORTS FEELING WEAK BUT SAYS SHE IS GETTING BETTER. NO OTHER CONCERNS THIS SHIFT.
[2021-04-30 06:19] LABS: Bun/Creatinine Ratio 18.5 (12.0-20.0); Calcium, Blood 7.8 mg/dL (8.5-10.1); Creatinine, Blood 1.08 mg/dL (0.40-1.00); Potassium, Blood 4.5 mmol/L (3.5-5.5)
[2021-04-30 15:17] LABS: BASOPHILS ABSOLUTE AUTO 0.04 K/mm3 (0.00-0.23); BASOPHILS PERCENT AUTO 0 % (0-2); EOSINOPHILS ABSOLUTE AUTO 0.28 K/mm3 (0.00-0.68); EOSINOPHILS PERCENT AUTO 2 % (0-6); Hematocrit 36.7 % (33.0-51.0); Hemoglobin 11.6 g/dL (11.5-16.0); IMMATURE GRAN ABSOLUTE AUTO 0.05 K/mm3 (0.00-0.10); IMMATURE GRAN PERCENT AUTO 0 % (0-1); LYMPHOCYTES ABSOLUTE AUTO 1.01 K/mm3 (0.84-5.20); LYMPHOCYTES PERCENT AUTO 9 % (21-46); MONOCYTES ABSOLUTE AUTO 1.16 K/mm3 (0.16-1.47); MONOCYTES PERCENT AUTO 10 % (4-13); Mean Corpuscular HGB 29.9 pg (26.0-34.0); Mean Corpuscular HGB Conc 31.6 g/dL (31.5-36.5); Mean Corpuscular Volume 95 fL (80-100); NEUTROPHILS ABSOLUTE AUTO 8.94 K/mm3 (1.96-9.15); NEUTROPHILS PERCENT AUTO 78 % (41-73); Platelet Count 360 K/mm3 (150-400); RDW Coefficient Variation 18.6 % (11.7-14.2); RDW Standard Deviation 60.2 fL (35.1-46.3); Red Blood Cell Count 3.88 M/mm3 (3.80-5.20); White Blood Cell Count 11.48 K/mm3 (4.00-11.30)
[2021-04-30 15:26] LABS: Albumin, Blood 2.1 g/dL (3.4-5.0); Albumin/Globulin Ratio 0.6 (0.8-1.8); Calcium, Blood 8.1 mg/dL (8.5-10.1); Creatinine, Blood 1.11 mg/dL (0.40-1.00); Globulin, Blood 3.8 g/dL (2.2-4.0); Potassium, Blood 4.9 mmol/L (3.5-5.5); Total Protein, Blood 5.9 g/dL (6.4-8.2)
--- NOTE | 2021-04-30 17:37 | NUR ---
SHIFT SUMMARY PATIENTN IS ALERT AND ORIENTED X3, SOMETIMES FORGETFUL. PLEASANT AND COOPERATIVE WITH CARE. THE PATIENT HAD A BOWEL MOVEMENT AFTER FLEET ENEMA WAS GIVEN. STOOL REPORTED TO MD JUDD VIA TELEPHONE. THE PATIENT IS ON TELE SINUS RHYTHM IN THE 70'S. THE PATIENT IS A 1 PERSON ASSIST TO THE BSC. CURRENTLY HAS 2LPM OF 02 VIA NASAL CANNULA WHILE SLEEPING. THIS NURSE WILL CONTINUE TO CARE FOR THE PATIENT UNTIL SHIFT REPORT IS GIVEN TO THE ONCOMING NURSE.
--- NOTE | 2021-04-30 22:20 | NUR ---
SPOKE WITH PT'S SON, ROBER. PROVIDED HIM WITH UPDATES REGARDING HER CONDITION. QUESTIONS AND CONCERNS WERE ADDRESSED AND HE VERBALIZED HIS UNDERSTANDING.
--- NOTE | 2021-05-01 06:39 | NUR ---
SHIFT SUMMARY ASSUMED CARE AT 1900. NO ACUTE EVENTS OVERNIGHT. PT AAOX2 WITH SOME FORGETFULNESS/CONFUSION. PT NOTED WITH FLAT AFFECT AND APPEARS WITHDRAWN. REMAINS ON 2L O2 VIA NC, O2 SATS >93%. REMAINS ON CARDIAC TELEMETRY MONITORING, BOX# [id number], SINUS RHYTHM WITH PVCs, HR 70s-80s, VERIFIED WITH ASHLY WIRELESS ARCHITECT. PT FRAIL, REFUSED OFFERS FOR PO HYDRATION; REFUSED 0600 DOSE ON ENULOSE. NO BLOODY STOOLS DURING SHIFT. COMPLAINED ONCE OF LOW BACK AND BUTTOCK PAIN, REFUSED PRN MEDS BUT DID ALLOW ME TO TURN AND REPOSITION HER. PT REFUSED SCDS. PT WITH MACULAR DEGENERATION SO VISION IS SEVERELY POOR. BED IN LOW POSITION WITH THE CALL LIGHT WITHIN EASY REACH. WILL CONTINUE TO MONITOR.
--- NOTE | 2021-05-01 19:56 | NUR ---
SHIFT SUMMARY PT UP IN CHAIR FOR EACH MEAL. ONLY EATING BITES OF MEALS AND TAKING SIPS OF LIQUIDS. CAREGIVER CALLED AND STATED SHE NEEDS DENTURE ADHESIVE TO BOTTOM TEETCH TO KEEP THEM IN PLACE. IT DID HELP TO UNDERSTAND HER SPEECH BETTER BUT HASN'T IMPROVED EATING. CAREGIVER REPORTS SHE EATS FREQUENTLY AND A LOT AT HOME SO NOT EATING HERE IS UNUSUAL. CHANGED DIET TO PUREE TO SEE IT PT COULD TOLERATE WITH LESS EXERTION TOMORROW. HAS HAD DIFFICULTY FOLLOWING DIRECTIONS AND CUES WITH MOBILITY FOR TRANSFERS AND ONLY TAKES TINY STEPS WHEN MOVING. MEALS SUPERVISED AND ASSISTED WITH AND MINIMAL IMPROVEMENT. SAYS NO TO ENSURES WHEN OFFERED. VOIDED WITH VERY EDD URINE THIS AFTERNOON.
--- NOTE | 2021-05-02 05:46 | NUR ---
CALL RECEIVED FROM JULY, OUTDOOR ADVERTISING LEASING AGENT REGARDING THE PT HAVING 6 BEATS OF VTACH. NONSUSTAINED. I WAS IN THE PT'S ROOM AT THE TIME, REPOSITIONING HER. PT ASYMPTOMATIC. DENIES CP/PRESSURE, DIZZINESS, N/T. WILL CONTINUE TO MONITOR.
--- NOTE | 2021-05-02 07:18 | NUR ---
SHIFT SUMMARY ASSUMED CARE AT 1900. PT AAOX1-2. FLAT AFFECT, WITHDRAWN. APPEARS TO BE DECONDITIONING, APPEARS MORE WEAK. PT UNABLE TO FOLLOW SIMPLE DIRECTIONS AT TIMES. ON 2L O2 VIA NC OVERNIGHT. PT WITH VERY POOR PO INTAKE. PT WITH NO URINE OUTPUT WHEN ASSISTED TO BSC X2 ASSIST WITH GAIT BELT ON A FEW OCCASIONS. BLADDER SCAN SHOWED 449ML URINE RETENTION. HOSPITALIST NOTIFIED, NEW ORDERS RECEIVED. PT STRAIGHT CATHED AND 600ML OF DARK EDD URINE DRAINED. ON CARDIAC TELE, SINUS RHYTHM 90s-SINUS TACHYCARDIA 101, VERIFIED WITH SUMMER THROUGH OPERATOR. PT DID HAVE A 6 BEAT RUN OF VATCH-ASYMPTOMATIC. ONCOMING NOURSE MADE AWARE WELL. BED IN LOW POSITION WITH THE CALL LIGHT WITHIN EASY REACH AND BED ALARM ACTIVATED. VITALS WNL.
--- NOTE | 2021-05-02 10:24 | NUR ---
ASSUMED CARE OF PATIENT AT 0715, PATIENT SLEEPING. Gonzalo KNIGHT, MULTI TOWNSHIP ASSESSOR, ATTEMPTED TO SEE PATIENT. UPON MY ASSESSMENT, PATIENT IS DIFFICULT TO AROUSE, LETHARGIC, HAS DELAYED OR NO RESPONSE TO COMMANDS. CANNOT STATE NAME OR . PER NOC REPORT, PT HAD LITTLE URINE OUTPUT YESTERDAY AND HAD LITTLE PO INTAKE. NOTIFIED DR. JUDD BY PHONE, RECEIVED ORDER FOR STAT HEAD CT D/T ACUTE CHANGE IN MENTATION, WHICH HAS BEEN COMPLETED AND SHOWS NO ACUTE INTERCRANIAL PROCESS. STARTED NS AT TKO, AWAITING FURTHER ORDERS FROM PROVIDER.
[2021-05-02 13:51] LABS: Source, Urine Straight Cath
[2021-05-02 14:11] LABS: Appearance, Urine Clear (Clear); Bilirubin, Urine Neg (Neg); Blood, Urine Neg (Neg); Color, Urine Yellow (P-Yellow); Glucose Qualitative, Urine Neg (Neg); Ketones, Urine 1+ (Neg); Leukocyte Esterase, Urine 1+ (Neg); Nitrite, Urine Neg (Neg); Protein, Urine Neg (Neg); Urobilinogen, Urine 1+ (Normal)
[2021-05-02 14:23] LABS: BASOPHILS ABSOLUTE AUTO 0.04 K/mm3 (0.00-0.23); BASOPHILS PERCENT AUTO 1 % (0-2); EOSINOPHILS ABSOLUTE AUTO 0.12 K/mm3 (0.00-0.68); EOSINOPHILS PERCENT AUTO 2 % (0-6); Hemoglobin 11.4 g/dL (11.5-16.0); IMMATURE GRAN ABSOLUTE AUTO 0.03 K/mm3 (0.00-0.10); IMMATURE GRAN PERCENT AUTO 0 % (0-1); LYMPHOCYTES ABSOLUTE AUTO 0.88 K/mm3 (0.84-5.20); LYMPHOCYTES PERCENT AUTO 11 % (21-46); MONOCYTES ABSOLUTE AUTO 0.61 K/mm3 (0.16-1.47); MONOCYTES PERCENT AUTO 8 % (4-13); Mean Corpuscular HGB 30.2 pg (26.0-34.0); Mean Corpuscular HGB Conc 31.7 g/dL (31.5-36.5); Mean Corpuscular Volume 96 fL (80-100); NEUTROPHILS ABSOLUTE AUTO 6.09 K/mm3 (1.96-9.15); NEUTROPHILS PERCENT AUTO 78 % (41-73); Platelet Count 361 K/mm3 (150-400); RDW Coefficient Variation 18.9 % (11.7-14.2); RDW Standard Deviation 62.2 fL (35.1-46.3); Red Blood Cell Count 3.77 M/mm3 (3.80-5.20); White Blood Cell Count 7.77 K/mm3 (4.00-11.30)
[2021-05-02 14:25] LABS: Bacteria Few /hpf; Red Blood Cells, Urine 0-2 /hpf (0-2); Squamous Epithelial Cells Rare /hpf (Few); Transitional Epithelial Cells Rare /hpf (0-Rare)
[2021-05-02 14:50] LABS: Albumin, Blood 2.3 g/dL (3.4-5.0); Albumin/Globulin Ratio 0.6 (0.8-1.8); Bilirubin, Total 1.4 mg/dL (0.1-1.0); Bun/Creatinine Ratio 16.8 (12.0-20.0); Calcium, Blood 8.3 mg/dL (8.5-10.1); Creatinine, Blood 1.49 mg/dL (0.40-1.00); Potassium, Blood 4.4 mmol/L (3.5-5.5); Total Protein, Blood 6.3 g/dL (6.4-8.2)
--- NOTE | 2021-05-02 18:35 | NUR ---
Met with pt, son, caregiver and bedside RN. Loraine Merlos,ROBBY noted pt was not taking in PO fluids or food, other than small, ocassional "bites", and does not appear interested in eating. Per family, pt has been struggling with this since her cataract surgery that was unsuccessful, and actually left her more blind than previously. She is now legally blind, and unable to see food no matter how close up she places it. The patient previously lives alone, but has had a dramatic decline over the past 7 months, and the decline has only increased since being admitted to the hospital for GI Bleed on 04/26. Son states he realizes now she can not live alone. He lives in [place], and plans to take pt to his home, possibly with hospice, but he states he will need to work out the details. We discussed Medicaid, but he reports she "doesn't qualify", and says it's due to a savings account that he is not willing to spend down for her to qualify. Will discuss with d/c planners from [place] tomorrow. Pt is far more alert and responsive since IV fluids began this am. I will remain available.
--- NOTE | 2021-05-02 18:44 | NUR ---
SHIFT SUMMARY: PT BEGAN WAKING UP THIS AFTERNOON AFTER IVF STARTED. A&O X 1-2, AROUSES TO SPEECH. RECOGNIZED AND INTERACTED WITH HER NEIGHBOR DANYEL AND HER SON MAINE WHEN THEY VISITED TODAY. NO EVENTS ON TELEMETRY, SR 90'S. DID STRAIGHT CATH X 1, UA SENT FOR CULTURE. ABLE TO SWALLOW PILLS WITH APPLESAUCE. SKIN IS EXTREMELY FRAGILE, NUMEROUS SCATTERED BRUISES; BEING REPOSITIONED AND WILL PLACE EGG CRATE FOAM AT NEXT OPPORTUNITY. FAMILY HAD DISCUSSION WITH Sandi SMYTH FROM [facility] THIS EVENING, DISCUSSED CARE OPTIONS INCLUDING POSSIBLE HOSPICE.
--- NOTE | 2021-05-03 06:17 | NUR ---
SHIFT SUMMARY ASSUMED CARE AT 1900. NO ACUTE EVENTS OVERNIGHT. PT IS RESPONSIVE BUT WITH DELAYED RESPONSES TO QUESTIONS AND DIRECTIONS/INSTRUCTIONS. PT AAOXX1-2. ABLE TO MAKE SOME NEEDS KNOWN BUT ALSO AT TIME MUMBLES INCOHERENTLY. REMAINS ON 2L O2 VIA NC. O2 SATS 96-98%. CARDIAC TELEMETRY MONITORING CONTINUES, SINUS RHYTHM- SINUS TACHYCARDIA WITH PVCs, HR 82-106, VERIFIED WITH [employer], [employer]. PT HEART RATE LOWERED TO THE 80s LATER IN THE SHIFT. IV FLUIDS INFUSING ORDERED, IV SITE TO RIGHT FOREARM REMAINS BENIGN. THIS MORNING, BLADDER SCAN SHOWED 575ML; STRAIGHT CATHED AND 450ML OF DARK EDD URINE WAS DRAINED. NO BM DURING SHIFT. PT REMAINS WITH POOR PO INTAKE. TURNED/REPOSITIONED. BILATERAL SCDs ON. BED IN LOW POSITION WITH THE CALL LIGHT WITHIN EASY REACH- ALTHOUGH PT DOES NOT USE IT. BED ALARM ACTIVATED. WILL CONTINUE TO MONITOR.
[2021-05-03 12:52] LABS: Influenza A, PCR NEGATIVE (NEGATIVE); Influenza B, PCR NEGATIVE (NEGATIVE); Resp Syncytial Virus, PCR NEGATIVE (NEGATIVE)
[2021-05-03 13:05] LABS: SARS-Cov-2 (COVID-19) PCR, MMC POSITIVE (NEGATIVE)
--- NOTE | 2021-05-03 19:30 | NUR ---
SHIFT SUMMARY: COVID RAPID TEST POSITIVE. A&O X 2, MORE AROUSEABLE TODAY. INTERACTING APPROPRIATELY WITH CG/NEIGHBOR DANYEL AND SON MAINE. NO EVENTS ON TELEMETRY, SR IN THE 70'S. O2 @ 2 L/MIN NC SHE NAPPED OFTEN TODAY. BM X 2, MAX ASSIST TO BSC, HAS DIFFICULTY WITH BEDPAN. FOAM OVERLAY PLACED ON MATTRESS, REPOSITIONING OFTEN. PO INTAKE POOR, NEEDS TO BE FED D/T BLINDNESS. STARTED ON REMDESIVIR, DEXAMETHASONE, ROCEPHIN. PARACENTESIS NOT COMPLETED TODAY, POSSIBLE WILL BE DONE FRIDAY. INDWELLING CATHETER PLACED FOR URINARY RETENTION, DRAINING EDD URINE.
[2021-05-04 05:12] LABS: Hematocrit 31.3 % (33.0-51.0); Hemoglobin 9.7 g/dL (11.5-16.0)
--- NOTE | 2021-05-04 05:26 | NUR ---
SHIFT SUMMARY ASSUMED CARE AT 1900. NO ACUTE EVENTS OVERNIGHT. REMAINS ON ENHANCED ISOLATION DUE TO +COVID, REMAINS ON 2L O2 VIA NC. O2 SATS >93%. NON PRODUCTIVE COUGH NOTED. ON CARDIAC TELE, SR 80s-ST 106, VERIFIED WITH AGATHA SEGURA TECH. PT DID HAVE 6 BEATS OF V-TACH, NON SUSTAINED AROUND 2355. PT ASYMPTOMATIC, OCCURRED WHILE BEING REPOSITIONED. PT TURNED AND REPOSITIONED Q2H. IV FLUUIDS INFUSING ORDERED. IV SITE BENIGN. ANN CATHETER IS PATENT, DRAINING DARK, EDD URINE VIA GRAVITY. PT AAOX1-2, CONFUSED, PT WILL BE TRANSFERRD TO ROOM 354. REPORT GIVEN TO ROBBY SANTA, RECEIVING NURSE. BED IS IN LOW POSITION WITH THE CALL LIGHT WITHIN EASY REACH.
[2021-05-04 05:30] LABS: Albumin, Blood 1.8 g/dL (3.4-5.0); Anion Gap 8 mmol/L (6-16); Blood Urea Nitrogen 19 mg/dL (8-24); Bun/Creatinine Ratio 16.8 (12.0-20.0); CO2, Blood 25 mmol/L (21-32); Calcium, Blood 7.3 mg/dL (8.5-10.1); Chloride, Blood 114 mmol/L (98-108); Creatinine, Blood 1.13 mg/dL (0.40-1.00); Glomerular Filtration Rate 46 (60-); Glucose, Blood 118 mg/dL (70-99); Magnesium, Blood 1.8 mg/dL (1.6-2.4); Phosphorus, Blood 3.1 mg/dL (2.5-4.9); Potassium, Blood 4.1 mmol/L (3.5-5.5); Sodium, Blood 147 mmol/L (136-145)
--- NOTE | 2021-05-04 06:07 | NUR ---
TRANSFER TO ROOM 354 FROM 314. REPORT TAKEN FROM MULU MOSQUERA RN. PATIENT ON 2L O2 NC. ANN PATENT AND DRAINING. PERSONAL BELONGINGS TAKEN. TELEMETRY INFORMED OF TRANSFER. NS INFUSING AT 50 mL/HR. TRANSFER COMPLETE.
--- NOTE | 2021-05-04 06:32 | NUR ---
PT TRANSFERRED TO ROOM 354 AT 0554. PT TRANSPORTED VIA BED BY MYSELF AND RECEIVING NURSE, ARINA ROSS RN. PT'S PERSONAL BELONGINGS INCLUDING CELL PHONE AND CELL PHONE MEDICAL CHEMIST, DENTURES, GLASSES, WELL A BAG OF CLOTHING WITH A PAIR OF SHOES WERE ALSO TRANSFERRED TO ROOM 354. CARDIAC TELEMETRY WAS NOTIFIED OF TRANSFER, SPOKE WITH IMELDA. ENHANCED ISOLATION RESUMED IN NEW ROOM WELL. PT TOLERATED THE TRANSFER WELL. PT WAS NOTIFIED OF PROPOSED ROOM TRANSFER PRIOR TO ACTUALLY BEING MOVED.
--- NOTE | 2021-05-04 13:30 | NUR ---
Pt's appetite remains poor. It appears the PCP had a discussion with son and friend regarding poor prognosis. However, the pt's friend/caregiver came to feed her breakfast and lunch today. According to bedside RN, pt did eat better with her friend here encouraging her. She will still need placement, however as the CG/friend is not available except for occasionally (not daily), and son lives in [place]. So this is ok for now, but not sustainable. Discharge planning notified.
--- NOTE | 2021-05-04 18:48 | NUR ---
SHIFT SUMMARY PATIENT IS AAOX3 BUT DOES GET PLEASANTLY CONFUSED AT TIMES AND HAS TO BE REORIENYED. IS EASILY REDIRECTED. DID WELL TODAY WITH MEALS AND ASSIST FEED. WORKED WITH PT AND WAS WIPED OUT REST OF THE DAY. VSS. NAD NOTED. TOOK MEDS GREAT. WAS WEANED OFF OF O2. NOW SATS ARE 98-1005 ON ROOM AIR AND REMAINS OF OXYGEN. NO C/O PAIN, SOB OR N/V VOICED. IV STABLE IN RIGHT FOREARM AND COVERED. SITTING UP IN BED WATCHING TV AT THIS TIME. WILL CONTINUE TO MONITOR IN CARE UNTIL ONCOMING NURSE ARRIVES.
[2021-05-05 05:07] LABS: Hemoglobin 10.7 g/dL (11.5-16.0)
[2021-05-05 05:41] LABS: Albumin, Blood 1.8 g/dL (3.4-5.0); Anion Gap 7 mmol/L (6-16); Blood Urea Nitrogen 20 mg/dL (8-24); Bun/Creatinine Ratio 16.3 (12.0-20.0); CO2, Blood 26 mmol/L (21-32); Calcium, Blood 7.9 mg/dL (8.5-10.1); Chloride, Blood 112 mmol/L (98-108); Creatinine, Blood 1.23 mg/dL (0.40-1.00); Glomerular Filtration Rate 42 (60-); Glucose, Blood 151 mg/dL (70-99); Magnesium, Blood 1.9 mg/dL (1.6-2.4); Phosphorus, Blood 2.9 mg/dL (2.5-4.9); Potassium, Blood 4.5 mmol/L (3.5-5.5); Sodium, Blood 145 mmol/L (136-145)
--- NOTE | 2021-05-05 05:42 | NUR ---
SHIFT SUMMARY: PT IS A/OX4. TELE PER TELE MONITOR: SR/64. ANN IS PATENT IS HAS DARKER EDD URINE. CLINIMIX IS INFUSING @ 50ml/hr. SHE HAS BEEN BEDBOUND THIS SHIFT, BUT HAS WORKED WITH PT. 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 BED ALARM IS IN LOWEST POSITION AND CALL LIGHT IS WITHIN REACH.
--- NOTE | 2021-05-05 13:29 | NUR ---
Update: MD notified regarding inability to establish IV access. To transition all applicable meds to PO until IV can be replaced.
[2021-05-06 05:00] LABS: Hematocrit 35.7 % (33.0-51.0); Hemoglobin 11.4 g/dL (11.5-16.0)
--- NOTE | 2021-05-06 05:06 | NUR ---
PT IS A/OX4. SHE DOES HAVE A NEW LEFT AC IV VIA ULTRASOUND. PT ENCOURAGED TO INCREASE PO INTAKE TOLERATED. TELE: SR. ANN IS PATENT W/ DARK EDD URINE. WE'LL CONTINUE TO MONITOR THE REMAINDER OF THE SHIFT.
[2021-05-06 05:15] LABS: Anion Gap 5 mmol/L (6-16); Blood Urea Nitrogen 24 mg/dL (8-24); Bun/Creatinine Ratio 23.8 (12.0-20.0); CO2, Blood 26 mmol/L (21-32); Calcium, Blood 7.8 mg/dL (8.5-10.1); Chloride, Blood 114 mmol/L (98-108); Creatinine, Blood 1.01 mg/dL (0.40-1.00); Glomerular Filtration Rate 53 (60-); Glucose, Blood 162 mg/dL (70-99); Magnesium, Blood 1.9 mg/dL (1.6-2.4); Phosphorus, Blood 2.2 mg/dL (2.5-4.9); Potassium, Blood 4.1 mmol/L (3.5-5.5); Sodium, Blood 145 mmol/L (136-145)
--- NOTE | 2021-05-06 17:30 | NUR ---
SHIFT SUMMARY: PT A&Ox4 T/OUT SHIFT, COOPERATIVE WITH CARE, ABLE TO USE CALL LIGHT APPROPRIATELY AND MAKE NEEDS KNOWN. PT DENIES SOB, CP. MAINTAINS O2 SATS >92% ON RA, SR ON MONITOR. INDWELLING ANN CONTINUES TO DRAIN DARK YELLOW COLORED URINE TO GRAVITY, LOW PO INTAKE CONTINUES, PT ENCOURAGED TO DRINK FLUIDS OFTEN AND DOES SO IN SMALL QUANTITY. PT BENEFITS FROM FEEDING ASSISTANCE D/T POOR VISION. AT THIS TIME, PT RESTING QUIETLY IN ROOM WITH SON AT BEDSIDE AND CALL LIGHT WITHIN REACH. WILL CONTINUE TO MONITOR AND TREAT ACCORDINGLY UNTIL CHANGE OF SHIFT.
[2021-05-07 04:42] LABS: Hemoglobin 11.6 g/dL (11.5-16.0)
--- NOTE | 2021-05-07 05:04 | NUR ---
SHIFT SUMMARY: PT IS A/OX4. SHE IS A 1 PA FWW TO THE BS, STILL HAS BILATERAL LE WEAKNESS. SENOKOT AND LACTULOSE WERE HELD D/T PT HAVE FREQUENT BMs DAY/NIGHT SHIFTS. PT's PO INTAKE IS IMPROVING VERY WELL. MARISSA IS PATENT; NO OTHER NEW CHANGES THIS SHIFT.
[2021-05-07 05:24] LABS: Anion Gap 5 mmol/L (6-16); Blood Urea Nitrogen 24 mg/dL (8-24); Bun/Creatinine Ratio 24.9 (12.0-20.0); CO2, Blood 25 mmol/L (21-32); Calcium, Blood 7.8 mg/dL (8.5-10.1); Chloride, Blood 113 mmol/L (98-108); Creatinine, Blood 0.97 mg/dL (0.40-1.00); Glomerular Filtration Rate 56 (60-); Glucose, Blood 140 mg/dL (70-99); Magnesium, Blood 1.8 mg/dL (1.6-2.4); Phosphorus, Blood 2.5 mg/dL (2.5-4.9); Potassium, Blood 4.3 mmol/L (3.5-5.5); Sodium, Blood 143 mmol/L (136-145)
[2021-05-08 04:50] LABS: Hematocrit 36.6 % (33.0-51.0); Hemoglobin 11.8 g/dL (11.5-16.0)
[2021-05-08 05:26] LABS: Albumin, Blood 1.9 g/dL (3.4-5.0); Anion Gap 5 mmol/L (6-16); Blood Urea Nitrogen 24 mg/dL (8-24); Bun/Creatinine Ratio 25.2 (12.0-20.0); CO2, Blood 25 mmol/L (21-32); Calcium, Blood 7.8 mg/dL (8.5-10.1); Chloride, Blood 113 mmol/L (98-108); Creatinine, Blood 0.95 mg/dL (0.40-1.00); Glomerular Filtration Rate 56 (60-); Glucose, Blood 99 mg/dL (70-99); Magnesium, Blood 1.9 mg/dL (1.6-2.4); Potassium, Blood 4.8 mmol/L (3.5-5.5); Sodium, Blood 143 mmol/L (136-145)
--- NOTE | 2021-05-08 05:58 | NUR ---
SHIFT SUMMARY PATIENT ALERT AND ORIENTED. HAD NO COMPLAINTS OF PAIN OR SHORTNESS OF BREATH. WAS UNABLE TO SLEEP OVERNIGHT. NO ACUTE ISSUES NOTED. BED IN LOWEST POSITION WITH WHEELS LOCKED. CALL LIGHT WITHIN REACH. REPORT GIVEN TO ONCOMING RN.
[2021-05-08] MEDS ORDERED: ALBU2.5V5 INH (11:05)
[2021-05-08] MEDS ORDERED: DEXA2 PO (11:08)
[2021-05-08] MEDS ORDERED: MIRT15 PO (11:10)
[2021-05-08] MEDS ORDERED: NYSTATIN100000 UN1 MT (11:14)
[2021-05-08] MEDS ORDERED: ONDA4 PO (11:17)
--- NOTE | 2021-05-08 12:39 | NUR ---
DISCHARGE PT DISCHARGED BY WHEELCHAIR VAN TO [facility] AT @1215. BELONGINGS PACKED WITH HER AND SAMPLE [employer]KER ORIGINAL FOLLOWING BEHIND.
--- NOTE | 2021-05-08 13:00 | NUR ---
Per Dr. Cummings discharge appropriate on: 05/08/21. Patient does not oppose discharge. Patient discharged to [facility] ([facility] recovery unit). Patient's son notified of discharge today and transport time to [facility]. alf plan is for patient to move to [place] with her son Quintin. Transportation arranged through [facility]. DME: 2WW ordered through [place] ([facility] [place]) and will be delivered to [facility]. [facility] will coordinate hospital PCP/ILDA Bedoya follow up. No barriers to discharge.
== END 2021-05-08 12:18 | DRG 377 ==
LOC: ER 18:27 → ERHOLD 18:28 → MEDS 04-26 11:04 → ENPENDDIS 05-01 14:40 → MEDS 05-04 05:52
PROVIDERS: Emergency Medicine; Hospitalist; Internal Medicine; Internal Medicine Gastroenterology; Internal Medicine Nephrology; ADMIT Internal Medicine
PROC: 30233N1 Transfusion of Nonautologous Red Blood Cells into Peripheral Vein, Percutaneous Approach (ICD-10-PCS; 2021-04-26)
PROC: 0W3P8ZZ Control Bleeding in Gastrointestinal Tract, Via Natural or Artificial Opening Endoscopic (ICD-10-PCS; principal; 2021-04-26 15:30)
PROC: 3E0333Z Introduction of Anti-inflammatory into Peripheral Vein, Percutaneous Approach (ICD-10-PCS; 2021-05-03)
PROC: 8E0ZXY6 Isolation (ICD-10-PCS; 2021-05-03)
PROC: XW033E5 Introduction of Remdesivir Anti-infective into Peripheral Vein, Percutaneous Approach, New Technology Group 5 (ICD-10-PCS; 2021-05-03)
DX: K26.4 Chronic or unspecified duodenal ulcer with hemorrhage (principal); E43 Unspecified severe protein-calorie malnutrition; U07.1 COVID-19; J12.82 Pneumonia due to coronavirus disease 2019; G93.41 Metabolic encephalopathy; J96.01 Acute respiratory failure with hypoxia; N17.9 Acute kidney failure, unspecified; D62 Acute posthemorrhagic anemia; R64 Cachexia; Z68.1 Body mass index [BMI] 19.9 or less, adult; D68.9 Coagulation defect, unspecified; E87.0 Hyperosmolality and hypernatremia; E88.09 Other disorders of plasma-protein metabolism, not elsewhere classified; K21.9 Gastro-esophageal reflux disease without esophagitis; E78.5 Hyperlipidemia, unspecified; J44.9 Chronic obstructive pulmonary disease, unspecified; Z88.5 Allergy status to narcotic agent; K72.90 Hepatic failure, unspecified without coma; Z85.118 Personal history of other malignant neoplasm of bronchus and lung; K74.60 Unspecified cirrhosis of liver; Z90.710 Acquired absence of both cervix and uterus; Z90.49 Acquired absence of other specified parts of digestive tract; Z85.07 Personal history of malignant neoplasm of pancreas; N18.30 Chronic kidney disease, stage 3 unspecified; I12.9 Hypertensive chronic kidney disease with stage 1 through stage 4 chronic kidney disease, or unspecified chronic kidney disease; M19.90 Unspecified osteoarthritis, unspecified site; Z92.3 Personal history of irradiation; K59.00 Constipation, unspecified; E86.9 Volume depletion, unspecified
CPT/HCPCS: 0241U; 36415; 70450; 71045; 74177; 76705; 76770; 80048; 80053; 80069; 81001; 81003; 82140; 83690; 83735; 84300; 85014; 85018; 85025; 85610; 85730; 86850; 86900; 86901; 86923; 87077; 87086; 87186; 92526; 92610; 94760; 96361; 96365; 96366; 96368; 96375; 96376; 97110; 97116; 97161; 97165; 97530; 97535; 99285-25; A9270; C9113; G0378; J0171; J0248; J0696; J0881; J1100; J2354; J2405; J2704; J3010; J7030; J7050; J7060; J7120; P9016; P9046; Q9967

== ENCOUNTER → 2021-05-11 | Outpatient (CLI) | payer MEDICARE, BC ==
[~2021-05-11] MED LIST changes: +DEXA2 PO; +NYSTATIN100000 UN1 MT; +ONDA4 PO
[2021-05-12 12:45] LABS: Bilirubin, Urine Neg (Neg); Blood, Urine 4+ (Neg); Glucose Qualitative, Urine Neg (Neg); Ketones, Urine Neg (Neg); Leukocyte Esterase, Urine 1+ (Neg); Nitrite, Urine Neg (Neg); Protein, Urine Neg (Neg); Specific Gravity, Urine 1.015 (1.003-1.022); Urobilinogen, Urine NORM (Normal)
[2021-05-12 13:14] LABS: Appearance, Urine Clear (Clear); Color, Urine Pale Yellow (P-Yellow)
[2021-05-12 13:15] LABS: Red Blood Cells, Urine 0-2 /hpf (0-2); Squamous Epithelial Cells Rare /hpf (Few)
[2021-05-12 13:16] LABS: Bacteria Rare /hpf; Calcium Oxalate Crystals Few /hpf; Mucus Mod (0-Heavy)
== END | disposition home or self-care (01) ==
LOC: EDSTATUS 10:40 → LAB RH 17:46
PROVIDERS: Internal Medicine
DX: N39.0 Urinary tract infection, site not specified (principal)
CPT/HCPCS: 81001; 87077; 87086; 87186